=== PATIENT | female | born 1945 | race Caucasian/White ===

== ENCOUNTER 2022-02-17 10:33 | Inpatient (IN) | payer OTHER, MEDICARE, SELFPAY ==
[2022-02-17] VITALS (12 sets, daily range): BP systolic 96–139; BP diastolic 45–84; PULSE 88–142; RESP 14–28; TEMP 36.3–36.7; O2SAT 93–99; BMI 19.0; BMI 18.8
--- NOTE | 2022-02-17 11:07 | EDS_ITS ---
HPI History of Present Illness Chief Complaint: Weakness Informant: patient Onset/Context/Timing Onset: Days (2) Context: Gradual Onset Timing: Continuous Quality: Weakness Location: Generalized Worsened by: Exertion Relieved by: Rest Narrative Narrative: Patient presents with generalized weakness that has been getting worse over the past 2 days. Patient states she feels weak anytime she exerts herself. Patient states it is better with rest. Patient states it is gradually gotten worse. Patient admits to some diarrhea and melena over the last couple days. Patient denies any abdominal pain. Patient states that on the way to the emergency department was she was in the back of the ambulance, she developed some heaviness in her chest. Patient states this has resolved. Patient admits to some urinary frequency but denies any dysuria or hematuria. Patient denies any shortness of breath or cough. Patient denies any fevers, chills, or sweats. [facility] Medical History Heart attack Hypertension Pulmonary embolism Spinal injuries Spinal stenosis Urinary tract infection Home Medications Claritin 10 mg PO/SL DAILY 02/17/22 [History Last Taken Unknown] Xarelto 10 mg PO/SL DAILY 02/17/22 [History Last Taken Unknown] aspirin 81 mg PO/SL DAILY 02/17/22 [History Last Taken Unknown] atorvastatin 40 mg PO/SL DAILY 02/17/22 [History Last Taken Unknown] calcium carbonate 1,000 mg PO/SL DAILY 02/17/22 [History Last Taken Unknown] hydrochlorothiazide 12.5 mg PO/SL DAILY 02/17/22 [History Last Taken Unknown] lisinopril 20 mg PO/SL DAILY 02/17/22 [History Last Taken Unknown] metoprolol tartrate 50 mg PO/SL BID 02/17/22 [History Last Taken Unknown] multivitamin 1 tablet PO/SL DAILY 02/17/22 [History Last Taken Unknown] vitamin B complex 1 caplet PO/SL DAILY 02/17/22 [History Last Taken Unknown] vitamin E 1,000 units PO/SL DAILY 02/17/22 [History Last Taken Unknown] Allergy/AdvReac Type Severity Reaction Status Date / Time iodine Allergy Rash Verified 02/17/22 10:47 morphine Allergy Other Verified 02/17/22 10:47 codeine AdvReac Vomiting Verified 02/17/22 10:47 Surgical History History of appendectomy History of hysterectomy History of tonsillectomy Social History Smoking Status: Former smoker ROS ROS ED Constitutional Constitutional ED: Denies chills or fever(s) Eyes Eyes: Denies blurry vision or change in vision ENT ENT ED: Denies rhinorrhea or sore throat Cardiovascular Cardiovascular: Reports chest pain; Denies palpitations Respiratory/Chest Respiratory/Chest: Denies cough or dyspnea Gastrointestinal Gastrointestinal: Reports diarrhea and melena; Denies nausea or vomiting Genitourinary Genitourinary ED: Denies dysuria or hematuria Musculoskeletal Musculoskeletal: Reports back pain; Denies neck pain Integumentary Denies abscess or rash Neurologic Neurologic: Reports weakness; Denies headache(s) Allergic/Immunologic Allergic/Immunologic ED: Denies mouth swelling or urticaria EXAM Physical Exam Const Vital Signs: 02/17/22 10:38 02/17/22 10:54 02/17/22 11:00 Temperature 97.7 F L Temperature Source Temporal Pulse Rate 128 H 124 H Pulse Rate [Lying] Pulse Rate [Sitting (for 1 minute prior to obtaining)] Pulse Rate [Standing (for 1 minute prior to obtaining)] Respiratory Rate 14 23 H Respiratory Effort Normal Respiratory Pattern Normal Blood Pressure 117/67 112/66 Blood Pressure [Lying] Blood Pressure [Sitting (for 1 minute prior to obtaining)] Blood Pressure [Standing (for 1 minute prior to obtaining)] Blood Pressure Mean 83 81 Blood Pressure Mean [Lying] Blood Pressure Mean [Sitting (for 1 minute prior to obtaining)] Blood Pressure Mean [Standing (for 1 minute prior to obtaining)] 02/17/22 12:00 02/17/22 12:53 Temperature Temperature Source Pulse Rate 111 H Pulse Rate [Lying] 137 H Pulse Rate [Sitting (for 1 minute prior to obtaining)] 142 H Pulse Rate [Standing (for 1 minute prior to obtaining)] 141 H Respiratory Rate 18 Respiratory Effort Respiratory Pattern Blood Pressure 123/69 H Blood Pressure [Lying] 108/64 Blood Pressure [Sitting (for 1 minute prior to obtaining)] 115/78 Blood Pressure [Standing (for 1 minute prior to obtaining)] 96/45 L Blood Pressure Mean 87 Blood Pressure Mean [Lying] 78 Blood Pressure Mean [Sitting (for 1 minute prior to obtaining)] 90 Blood Pressure Mean [Standing (for 1 minute prior to obtaining)] 62 Positive well nourished and well developed General Appearance ED: well developed and NAD HEENT Reports moist mucous membranes Eyes PERRL and EOMs intact bilaterally Neck supple and no JVD Chest Wall inspection of chest normal and palpation of chest normal Resp normal respiratory effort and clear to auscultation bilaterally Cardio regular rhythm Rate: tachycardic GI normal to inspection, nondistended, normoactive bowel sounds and non-tender Palpation: soft Extremity normal to inspection General Extremety ED: Negative for edema or tenderness General Extremity: Negative for edema Neuro oriented x3, CN's II-XII intact bilaterally and no sensory deficits noted Sensorium / Orientation: alert Motor Exam: strength 5/5 throughout Psych mental status grossly normal MDM MDM MDM Narrative Medical decision making narrative: Patient was given IV fluids. Patient was given aspirin. EKG showed sinus tachycardia with a rate of 129. There is a left anterior fascicular block noted. TX interval was normal. QRS interval was normal. QTc interval was within normal limits. There is left axis deviation at -62. There are nonspecific ST-T wave changes noted. There are no prior EKGs available for comparison. CBC shows a mild leukocytosis of 15.6. Hemoglobin was 11.6 and hematocrit was 34.5. Comprehensive metabolic profile shows a BUN of 15 and creatinine 1.27. High-sensitivity troponin was elevated to 70. Stool Hemoccult was positive. Orthostatic vital signs were positive. Patient was given repeat bolus of normal saline. Case was discussed with Dr. Allen from gastroenterology. He is agreeable to see the patient in the hospital. Case was discussed with the hospitalist. He will admit the patient to PCU. Patient and family understood and were agreeable with the plan. All questions were answered. Lab Data Attestation: I reviewed the patient's lab results. Labs: Laboratory Results - last 24 hr 02/17/22 02/17/22 11:00 11:00 WBC 15.6 H RBC 3.33 L Hgb 11.6 L Hct 34.5 L MCV 103.6 H MCH 34.8 H MCHC 33.6 RDW Std Deviation 50.7 H RDW Coeff of Annemarie 13.3 Plt Count 289 MPV 10.3 Immature Gran % (Auto) 0.500 Neut % (Auto) 78.8 H Lymph % (Auto) 13.2 L Dawson % (Auto) 7.0 Eos % (Auto) 0.2 Baso % (Auto) 0.3 Absolute Neuts (auto) 12.3 H Absolute Lymphs (auto) 2.06 Nucleated RBC % 0 Sodium 142 Potassium 3.8 Chloride 107 Carbon Dioxide 25.0 Anion Gap 10 BUN 50 H Creatinine 1.27 H Estim Creat Clear Calc 33.66 Est GFR (MDRD) Af Amer 52 L Est GFR (MDRD) Non-Af 43 L BUN/Creatinine Ratio 39.4 H Glucose 118 H Calcium 9.3 Total Bilirubin 0.30 AST 16 ALT 20 Alkaline Phosphatase 53 Troponin I High Sens 270 H* Total Protein 7.2 Albumin 3.6 Globulin 3.6 Albumin/Globulin Ratio 1.0 EKG Initial EKG: Interpretation: Sinus Tachycardia (129), LAFB and Non-Specific ST Changes Prior EKG tracings: not available for review Discharge Plan Dx/Rx/DC Orders Clinical Impression: Gastrointestinal bleeding, upper, Elevated troponin Disposition Disposition: Acute Care Hospital [facility]
--- NOTE | 2022-02-17 11:11 | EKG12_ITS ---
Test Reason : CP Blood Pressure : / mmHG Vent. Rate : 129 BPM Atrial Rate : 129 BPM P-R Int : 146 ms QRS Dur : 078 ms QT Int : 312 ms P-R-T Axes : 074 -62 049 degrees QTc Int : 457 ms Sinus tachycardia Left anterior fascicular block Nonspecific ST abnormality Abnormal ECG Confirmed by NANCY GRIFFIN, CHIP ([id number]), editorial cartoonist KWASI VIEYRA ([id number]) on 02/18/2022 10:24:58 AM Referred By: KMA/JACKELIN Confirmed By:CHIP CRUZ MD
[2022-02-17] MEDS: 0.9% Normal Saline 1,000 ML 1000 ML IV ×2 (11:17→14:24)
[2022-02-17 11:50] LABS: Absolute Lymphocyte Count 2.06 X10^3/uL (0.83-4.51); Absolute Neutrophil Count 12.3 X10^3/uL (2.0-7.7); Basophil# 0.05 X10^3/uL; Basophil% 0.3 % (0-1); Eosinophil# 0.03 X10^3/uL; Eosinophils% 0.2 % (0-5); Hematocrit 34.5 % (37-47); Hemoglobin 11.6 g/dL (12.0-15.0); Lymphocyte # 2.06 X10^3/ul (0.83-4.51); Lymphocyte % 13.2 % (19-41); Mean Corp Hgb Conc 33.6 g/dL (32-36); Mean Corpuscular Hgb 34.8 pg (27.0-32.0); Mean Corpuscular Volume 103.6 fL (81-99); Mean Platelet Vol. 10.3 fl (6.2-12.0); Monocyte# 1.09 X10^3/uL; NRBC Flagged by Analyzer 0 % (0-5); Neutrophil # 12.27 X10^3/uL (2.7-7.7); Neutrophil % 78.8 % (47-70); Platelet Count 289 K/mm3 (150-450); RBC Distribution Width CV 13.3 % (11.6-14.6); RBC Distribution Width SD 50.7 fl (35.1-43.9); Red Blood Count 3.33 M/mm3 (4.2-5.4); White Blood Count 15.6 K/mm3 (4.4-11.0)
[2022-02-17 11:52] LABS: AST(SGOT) 16 U/L (15-37); Alanine Aminotransfer ALT/SGPT 20 U/L (13-56); Albumin, Serum 3.6 g/dL (3.2-5.0); Alkaline Phosphatase 53 U/L (45-117); Anion Gap 10 (5-15); BUN 50 mg/dL (7-18); BUN/Creat Ratio 39.4 RATIO (10-20); Calcium,Total 9.3 mg/dL (8.5-10.1); Chloride 107 mmol/L (98-107); Creatinine, Serum 1.27 mg/dL (0.55-1.02); EST Glomerular Filtration Rate 43 mL/min (>60); Est Glom Filt Rate - Afr Amer 52 mL/min (>60); Estimated Creatinine Clearance 33.66 ml/min; Globulin 3.6 g/dL (2.2-4.2); Glucose 118 mg/dL (74-106); Potassium 3.8 mmol/L (3.5-5.1); Protein, Total 7.2 g/dL (6.4-8.2); Sodium Level 142 mmol/L (136-145); Troponin-I HS 270 pg/mL (3.0-54.0)
--- NOTE | 2022-02-17 14:07 | RAD_ITS ---
STUDY: X-RAY CHEST REASON FOR EXAM: Female, 76 years old. Chest pain TECHNIQUE: Single AP portable view of the chest. COMPARISON: None. FINDINGS: EKG electrodes are seen. There is hyperinflation of the lungs consistent with chronic obstructive lung disease (COPD). There is no demonstrated pleural abnormality. Normal size heart. Normal mediastinum and ministerio. Normal visualized pulmonary arteries. There is atherosclerotic calcification of the aortic arch with tortuosity. There is a dextroscoliosis of the thoracic spine. Normal visualized ribs, clavicles, and shoulders. There is no demonstrated abnormality of the visualized soft tissue structures of the upper abdomen. RAD/Chest 1 View (Portable) IMPRESSION: Hyperinflation with increased bilateral bronchovascular markings suggestive of COPD. Electronically Signed: Medardo Walton MD at 15:08 EDT ,
[2022-02-17] MEDS: Aspirin 81 MG TAB.CHEW 324 MG PO (14:25)
--- NOTE | 2022-02-17 14:40 | PCM.HP.STD ---
Documented by User: Sarah Mark NP, SENIOR POWER SCHEDULER-C 02/17/22 15:08 HPI - General HPI Narrative MILLER ACUNA, is a 76 F who presents to the emergency room due to weakness and diarrhea. Patient states for the past 2 days she has felt generally weak and spends much of her day sleeping. She reports this morning she began to have recurrent episodes of diarrhea which were black in color. She also reports chest pressure and dyspnea on exertion. She denies chest pain or pressure at rest. She denies history of GI bleed. Denies nausea, vomiting. Denies fever, chills. Patient reports she has had some chest pressure recently and suspected it was due to anxiety however her symptoms have become worse. She reports a past medical history of CAD with history of stents, hypertension, hyperlipidemia, history of PE. [facility] Medical History Heart attack Hypertension Pulmonary embolism Spinal injuries Spinal stenosis Urinary tract infection Home Medications aspirin [Aspirin Low Dose] 81 mg PO DAILY 02/17/22 [History Last Taken 02/16/22] atorvastatin 40 mg PO DAILY 02/17/22 [History Last Taken 02/16/22] calcium carbonate 1,000 mg PO DAILY 02/17/22 [History Last Taken 02/16/22] hydrochlorothiazide 12.5 mg PO DAILY 02/17/22 [History Last Taken 02/16/22] lisinopril 20 mg PO DAILY 02/17/22 [History Last Taken 02/16/22] loratadine [Claritin] 10 mg PO DAILY 02/17/22 [History Last Taken 02/16/22] metoprolol tartrate 50 mg PO BID 02/17/22 [History Last Taken 02/16/22] multivitamin,[id number]-dddl-Vw-FA-min [Therapeutic Multivit/Mineral] 1 tab PO DAILY 02/17/22 [History Last Taken 02/16/22] rivaroxaban [Xarelto] 10 mg PO DAILY 02/17/22 [History Last Taken 02/16/22] vitamin B complex 1 cap PO DAILY 02/17/22 [History Last Taken 02/16/22] vitamin E 1,000 unit PO DAILY 02/17/22 [History Last Taken 02/16/22] Allergy/AdvReac Type Severity Reaction Status Date / Time iodine Allergy Rash Verified 02/17/22 10:47 morphine Allergy Other Verified 02/17/22 10:47 codeine AdvReac Vomiting Verified 02/17/22 10:47 Family History other other (States she has a dysfunctional family and does not know maternal or paternal medical history.) Surgical History H/O heart artery stent History of appendectomy History of hysterectomy History of tonsillectomy Previous back surgery Social History (Updated 02/17/22 @ 14:47 by Sarah Mark SENIOR POWER SCHEDULER, SENIOR POWER SCHEDULER-C) household members: spouse Smoking Status: Former smoker alcohol intake: never substance use type: does not use ROS Constitutional Constitutional: Reports fatigue and weakness; Denies change in weight, chills or fever(s) Cardiovascular Cardiovascular: Reports chest pain; Denies edema, lightheadedness, palpitations or syncope Respiratory/Chest Respiratory/Chest: Reports shortness of breath with exertion; Denies cough, productive cough or wheezing Gastrointestinal Gastrointestinal: Reports diarrhea; Denies abdominal pain, constipation, nausea or vomiting Genitourinary Genitourinary: Denies burning urination, difficulty urinating, dysuria, hematuria, urinary frequency, urinary incontinence or urinary urgency Musculoskeletal Musculoskeletal: Denies back pain, joint pain or muscle weakness Integumentary Integumentary: Denies erythema, lesions, rash or wounds Neurologic Neurologic: Denies abnormal speech, confusion, dizziness, focal weakness, numbness, paresthesias, seizure-like activity or syncope Psychiatric Psychiatric: Denies anxiety or depression Hematologic/Lymphatic Hematologic/Lymphatic: Denies anemia, easy bleeding or easy bruising Allergic/Immunologic Allergic/Immunologic: Denies hives or asthma Vital Signs Vital Signs Vital Signs: 02/17/22 10:38 02/17/22 10:54 02/17/22 11:00 Temperature 97.7 F L Temperature Source Temporal Pulse Rate 128 H 124 H Pulse Rate [Lying] Pulse Rate [Sitting (for 1 minute prior to obtaining)] Pulse Rate [Standing (for 1 minute prior to obtaining)] Respiratory Rate 14 23 H Respiratory Effort Normal Respiratory Pattern Normal Blood Pressure 117/67 112/66 Blood Pressure [Lying] Blood Pressure [Sitting (for 1 minute prior to obtaining)] Blood Pressure [Standing (for 1 minute prior to obtaining)] Blood Pressure Mean 83 81 Blood Pressure Mean [Lying] Blood Pressure Mean [Sitting (for 1 minute prior to obtaining)] Blood Pressure Mean [Standing (for 1 minute prior to obtaining)] 02/17/22 12:00 02/17/22 12:53 02/17/22 14:00 Temperature Temperature Source Pulse Rate 111 H 124 H Pulse Rate [Lying] 137 H Pulse Rate [Sitting (for 1 minute prior to obtaining)] 142 H Pulse Rate [Standing (for 1 minute prior to obtaining)] 141 H Respiratory Rate 18 28 H Respiratory Effort Respiratory Pattern Blood Pressure 123/69 H 105/67 Blood Pressure [Lying] 108/64 Blood Pressure [Sitting (for 1 minute prior to obtaining)] 115/78 Blood Pressure [Standing (for 1 minute prior to obtaining)] 96/45 L Blood Pressure Mean 87 79 Blood Pressure Mean [Lying] 78 Blood Pressure Mean [Sitting (for 1 minute prior to obtaining)] 90 Blood Pressure Mean [Standing (for 1 minute prior to obtaining)] 62 02/17/22 14:27 Temperature 97.3 F L Temperature Source Temporal Pulse Rate 117 H Pulse Rate [Lying] Pulse Rate [Sitting (for 1 minute prior to obtaining)] Pulse Rate [Standing (for 1 minute prior to obtaining)] Respiratory Rate 28 H Respiratory Effort Respiratory Pattern Blood Pressure 105/67 Blood Pressure [Lying] Blood Pressure [Sitting (for 1 minute prior to obtaining)] Blood Pressure [Standing (for 1 minute prior to obtaining)] Blood Pressure Mean 79 Blood Pressure Mean [Lying] Blood Pressure Mean [Sitting (for 1 minute prior to obtaining)] Blood Pressure Mean [Standing (for 1 minute prior to obtaining)] Weight Weight: 128 lb 11.999 oz Body Mass Index (BMI) 19.0 Physical Exam Const alert, oriented x3 and no apparent distress Orientation / Consciousness: awake, oriented to person, oriented to place and oriented to time HEENT normocephalic and moist oral mucous membranes Eyes PERRL, EOMs intact bilaterally and conjunctivae normal Neck no lymphadenopathy Resp normal respiratory effort and clear to auscultation bilaterally Cardio regular rate, regular rhythm and no murmurs Peripheral Pulses: pulses 2+ throughout GI normal to inspection, nondistended, normoactive bowel sounds, non-tender and non-distended Extremity normal to inspection Skin no rashes or lesions noted Lesions: no lesions Rashes: no rashes Trauma: no lacerations or abrasions Neuro CN's II-XII intact bilaterally, no focal motor deficits, no sensory deficits noted and deep tendon reflexes 2+ bilaterally Psych mental status grossly normal and affect normal Results Lab / Micro Data Result Diagrams: 02/17/22 11:00 02/17/22 11:00 Labs: Laboratory Results - last 24 hr 02/17/22 11:00: WBC 15.6 H, RBC 3.33 L, Hgb 11.6 L, Hct 34.5 L, MCV 103.6 H, MCH 34.8 H, MCHC 33.6, RDW Std Deviation 50.7 H, RDW Coeff of Annemarie 13.3, Plt Count 289, MPV 10.3, Immature Gran % (Auto) 0.500, Neut % (Auto) 78.8 H, Lymph % (Auto) 13.2 L, Bleckley % (Auto) 7.0, Eos % (Auto) 0.2, Baso % (Auto) 0.3, Absolute Neuts (auto) 12.3 H, Absolute Lymphs (auto) 2.06, Nucleated RBC % 0 02/17/22 11:00: Sodium 142, Potassium 3.8, Chloride 107, Carbon Dioxide 25.0, Anion Gap 10, BUN 50 H, Creatinine 1.27 H, Estim Creat Clear Calc 33.66, Est GFR (MDRD) Af Amer 52 L, Est GFR (MDRD) Non-Af 43 L, BUN/Creatinine Ratio 39.4 H, Glucose 118 H, Calcium 9.3, Total Bilirubin 0.30, AST 16, ALT 20, Alkaline Phosphatase 53, Troponin I High Sens 270 H*, Total Protein 7.2, Albumin 3.6, Globulin 3.6, Albumin/Globulin Ratio 1.0 Micro: Microbiology 02/17/22 Unknown Stool Stool Occult Blood (STEFANO) - Final Occult Blood Positive Assessment & Plan Assessment/Plan (1) Elevated troponin: (2) Gastrointestinal bleeding, upper: PLAN: 1. GI bleed- stool + OB. IV PPI. GI consult. Trend H/H. 2. Elevated troponin- trend enzymes. EKG with nonspecific ST changes. Trend enzymes. Obtain echo. If enzymes trend upward, will obtain cardiology consult. Continue statin, metoprolol. Patient received aspirin 324 mg x 1 in ED. 3. Elevated creatinine-unknown baseline. IV fluids, trend BMP. 4. CAD with history of stents-on aspirin, statin, metoprolol. 5. Hypertension-continue lisinopril, HCTZ, metoprolol. 6. Hyperlipidemia- continue statin. 7. History of PE- on xarelto. DVT prophylaxis-SCDs, hold xarelto This patient was seen by FREDA Stephens under the supervision of Dr. Mcghee. Time spent examining patient, reviewing data and subsequent management of care: 18 Minutes Documented by User: Dr. Rodlofo Mcghee MD 02/17/22 19:46 HPI - General General Date of Admission: 02/17/22 [facility] Medical History Heart attack Hypertension Pulmonary embolism Spinal injuries Spinal stenosis Urinary tract infection Home Medications aspirin [Aspirin Low Dose] 81 mg PO DAILY 02/17/22 [History Last Taken 02/16/22] atorvastatin 40 mg PO DAILY 02/17/22 [History Last Taken 02/16/22] calcium carbonate 1,000 mg PO DAILY 02/17/22 [History Last Taken 02/16/22] hydrochlorothiazide 12.5 mg PO DAILY 02/17/22 [History Last Taken 02/16/22] lisinopril 20 mg PO DAILY 02/17/22 [History Last Taken 02/16/22] loratadine [Claritin] 10 mg PO DAILY 02/17/22 [History Last Taken 02/16/22] metoprolol tartrate 50 mg PO BID 02/17/22 [History Last Taken 02/16/22] multivitamin,[id number]-yroy-Xa-FA-min [Therapeutic Multivit/Mineral] 1 tab PO DAILY 02/17/22 [History Last Taken 02/16/22] rivaroxaban [Xarelto] 10 mg PO DAILY 02/17/22 [History Last Taken 02/16/22] vitamin B complex 1 cap PO DAILY 02/17/22 [History Last Taken 02/16/22] vitamin E 1,000 unit PO DAILY 02/17/22 [History Last Taken 02/16/22] Allergy/AdvReac Type Severity Reaction Status Date / Time iodine Allergy Rash Verified 02/17/22 10:47 morphine Allergy Other Verified 02/17/22 10:47 codeine AdvReac Vomiting Verified 02/17/22 10:47 Family History other Surgical History H/O heart artery stent History of appendectomy History of hysterectomy History of tonsillectomy Previous back surgery Social History (Updated 02/17/22 @ 14:47 by Sarah Mark SENIOR POWER SCHEDULER, SENIOR POWER SCHEDULER-C) household members: spouse Smoking Status: Former smoker alcohol intake: never substance use type: does not use Results Lab / Micro Data Result Diagrams: 02/17/22 11:00 02/17/22 11:00 Charges/Coding Addendum Addendum: Dr. Mcghee: I personally reviewed the chart and examined the patient, and agree with the above findings. 76-year-old female with a previous history of coronary artery disease and stents about 10 years ago presented to the hospital with some shortness of breath and chest pressure as well as diarrhea and dark melanotic stools. She says the diarrhea and the melanotic stools started within the last 24 to 48 hours. The stools were tested in the ER and were found positive for blood. Hemoglobin is stable at 11.6, her creatinine is slightly elevated but we do not know what her baseline is. We will continue with IV fluids and will hold her home Xarelto and aspirin. Initial troponin was slightly elevated to 270 and then repeat went down to 229. I am not concerned of acute coronary syndrome at this time especially given her GI bleed. We will continue with PPI as well as consulting gastroenterology for evaluation and a possible scope. If she develops worse chest pressure or has any ischemic changes on her EKG then at that time will consult cardiology however my hope is that with the resolution of her GI bleed and her diarrhea, if she feels better she can follow-up with her retail bakery manager in the [facility] as an outpatient. Of note with her symptoms of fatigue over the last several weeks as well as some weakness, her UA showed positive nitrites and 500 leukocyte esterase as well as 3+ urine bacteria we will obtain a urine culture and if positive can start treatment. Clinical time spent in all aspects of patient care: 55 minutes Visit Charges Inpatient E&M: 83896 Init Hosp L3
[2022-02-17 14:45] LABS: International Normalized Ratio 1.1; Partial Thromboplast Time 26.5 Seconds (24.1-36.2); Prothrombin Time (Protime)PT. 13.8 SECONDS (11.7-14.9)
[2022-02-17 15:06] LABS: Troponin-I HS 229 pg/mL (3.0-54.0)
[2022-02-17 16:04] LABS: Mucous, Urine 0 SEEN /hpf (<or=2+)
--- NOTE | 2022-02-17 16:05 | ECHOD_ITS ---
Reason For Study: ELEVATED TROPONINS Procedure This was a 2D Doppler, Color Flow transthoracic echocardiogram. The study was technically difficult. Due to deformed chest structures. Exam performed portable in patient room. Left Ventricle The estimated ejection fraction is 65 %. Unable to assess diastolic dysfunction. No regional wall motion abnormalities noted. Right Ventricle Normal RV size. Normal systolic function. Atria Normal left atrium. Normal right atrium. No doppler evidence for ASD. Mitral Valve There is moderate mitral annular calcification. There is no mitral valve stenosis. No mitral valve insufficiency. Tricuspid Valve There is no tricuspid stenosis. Trivial tricuspid valve insufficiency. Pulmonary artery systolic pressure is 40 mmHg. Aortic Valve Trisinus/trileaflet aortic valve. There is no aortic stenosis. No aortic valve insufficiency. Pulmonic Valve There is no pulmonic valvular stenosis. No pulmonic valve insufficiency. Great Vessels Normal aortic root. Pericardium/Pleural No pericardial effusion. MMode/2D Measurements & Calculations LVIDd: 4.0 cm IVSd: 0.77 cm Ao root diam: 2.9 cm LVIDs: 3.0 cm LVPWd: 0.75 cm RVDd: 3.1 cm FS: 25.2 % LAV(MOD-bp): 41.9 ml LA A4 area: 14.9 cm2 LA dimension(2D): 4.6 cm LAV(MOD-bp) Indexed: 24.6 ml/m2 LAV(MOD-sp2): 41.4 ml LAV(MOD-sp4): 40.5 ml RA A4 area: 13.5 cm2 Time Measurements MV dec time: 0.14 sec Doppler Measurements & Calculations MV E max diallo: 86.8 cm/sec Lat Peak E' Diallo: 11.1 cm/sec Med Peak E' Diallo: 7.1 cm/sec MV A max diallo: 125.4 cm/sec E/E' lat: 7.8 E/E' med: 12.2 MV E/A: 0.69 Ao V2 max: 150.8 cm/sec LV V1 max: 105.6 cm/sec PA V2 max: 78.4 cm/sec Ao max P.1 mmHg LV V1 max P.5 mmHg TR max diallo: 278.7 cm/sec TR max P.3 mmHg ECHO/Echo Complete Interpretation Summary The estimated ejection fraction is 65 %. No significant valvular abnormalities Ordering Physician: Sarah Mark Referring Physician: Cr Mitchell Performed By: Peggy Ye RDCS, RVT
[2022-02-17 16:06] LABS: Color, Urine Yellow (Yellow); Glucose, Dipstick Normal (Normal); Ketone-Dipstick Negative (Negative); Leukocyte Esterase-Dipstick 500 /ul (Negative); Nitrite-Dipstick Positive (Negative); Occult Blood-Urine 150 /ul (Negative); Protein-Dipstick 30 mg/dl (Negative); Specific Gravity, Urine 1.015 (1.002-1.030); Urine Bilirubin Dipstick Negative (Negative); Urine Clarity Sl. Cloudy (Clear); Urine Urobilinogen Normal (Normal)
[2022-02-17 16:15] LABS: Bacteria 3+ /hpf (None Seen); Red Blood Cells-Urine 0-5 SEEN /hpf (0-5); Squamous Epithelial Cells - UA 0-5 SEEN /hpf (5-10); White Blood Cells 25-50 SEEN /hpf (0-5)
[2022-02-17] MEDS: 0.9% Normal Saline 1,000 ML 75 ML IV (16:24)
[2022-02-17] MEDS: 0.9% Saline Lock 10 ML Syringe IV (16:25)
[2022-02-17] MEDS: Metoprolol Tartrate 50 MG Tablet PO ×2 (16:33→22:57)
--- NOTE | 2022-02-17 18:03 | EX.PCM.CON.G ---
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 She has been having progressive weakness and diarrhea. She describes as blacking tarry. Her hemoglobin was 11.6 in the emergency room. We do not have a baseline hemoglobin on her. Her BUN/creatinine ratio is also elevated at 50-1.7. Her troponin was elevated at 270 and has gone down to 226. Her EKG did not show any signs of acute ischemia. In the ED. she was also discovered to have an increased white blood cell count. She denies any cough. She denies any chest pain or shortness of breath. She does complain of weakness and fatigue with lethargy. [facility] Medical History Heart attack Hypertension Pulmonary embolism Spinal injuries Spinal stenosis Urinary tract infection Home Medications aspirin [Aspirin Low Dose] 81 mg PO DAILY 02/17/22 [History Last Taken 02/16/22] atorvastatin 40 mg PO DAILY 02/17/22 [History Last Taken 02/16/22] calcium carbonate 1,000 mg PO DAILY 02/17/22 [History Last Taken 02/16/22] hydrochlorothiazide 12.5 mg PO DAILY 02/17/22 [History Last Taken 02/16/22] lisinopril 20 mg PO DAILY 02/17/22 [History Last Taken 02/16/22] loratadine [Claritin] 10 mg PO DAILY 02/17/22 [History Last Taken 02/16/22] metoprolol tartrate 50 mg PO BID 02/17/22 [History Last Taken 02/16/22] multivitamin,go-jqis-Dx-FA-min [Therapeutic Multivit/Mineral] 1 tab PO DAILY 02/17/22 [History Last Taken 02/16/22] rivaroxaban [Xarelto] 10 mg PO DAILY 02/17/22 [History Last Taken 02/16/22] vitamin B complex 1 cap PO DAILY 02/17/22 [History Last Taken 02/16/22] vitamin E 1,000 unit PO DAILY 02/17/22 [History Last Taken 02/16/22] Allergy/AdvReac Type Severity Reaction Status Date / Time iodine Allergy Rash Verified 02/17/22 10:47 morphine Allergy Other Verified 02/17/22 10:47 codeine AdvReac Vomiting Verified 02/17/22 10:47 Family History other Surgical History H/O heart artery stent History of appendectomy History of hysterectomy History of tonsillectomy Previous back surgery Social History (Updated 02/17/22 @ 14:47 by Sarah Mark 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 EQUIPMENT REPAIRER, 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 EQUIPMENT REPAIRER-C) household members: spouse Smoking Status: Former smoker alcohol intake: never substance use type: does not use ROS Gastrointestinal Gastrointestinal: Reports melena Physical Exam Const alert General Appearance: cooperative Orientation / Consciousness: oriented to person HEENT hearing grossly normal bilaterally Head and Scalp: normal to inspection Face and Sinus: face symmetric Nose: external nose normal Mouth: oral and palatal mucosa normal Eyes conjunctivae normal General Eye: normal appearance of both eyes Neck full ROM General: normal visual inspection Lymph Lymphatic: no lymphadenopathy noted Chest inspection of chest normal and palpation of chest normal Chest: symmetrical chest wall rise Resp normal respiratory effort Effort and Inspection: able to speak in complete sentences Cardio regular rate GI non-distended Percussion: normal to percussion Rectal Exam: deferred Neuro Speech: speech normal Gait (Neuro): normal gait Lab / Micro Data Result Diagrams: 02/17/22 11:00 02/17/22 11:00 Labs: Laboratory Results - last 24 hr 02/17/22 11:00: WBC 15.6 H, RBC 3.33 L, Hgb 11.6 L, Hct 34.5 L, MCV 103.6 H, MCH 34.8 H, MCHC 33.6, RDW Std Deviation 50.7 H, RDW Coeff of Annemarie 13.3, Plt Count 289, MPV 10.3, Immature Gran % (Auto) 0.500, Neut % (Auto) 78.8 H, Lymph % (Auto) 13.2 L, [place] % (Auto) 7.0, Eos % (Auto) 0.2, Baso % (Auto) 0.3, Absolute Neuts (auto) 12.3 H, Absolute Lymphs (auto) 2.06, Nucleated RBC % 0 02/17/22 11:00: Sodium 142, Potassium 3.8, Chloride 107, Carbon Dioxide 25.0, Anion Gap 10, BUN 50 H, Creatinine 1.27 H, Estim Creat Clear Calc 33.66, Est GFR (MDRD) Af Amer 52 L, Est GFR (MDRD) Non-Af 43 L, BUN/Creatinine Ratio 39.4 H, Glucose 118 H, Calcium 9.3, Total Bilirubin 0.30, AST 16, ALT 20, Alkaline Phosphatase 53, Troponin I High Sens 270 H*, Total Protein 7.2, Albumin 3.6, Globulin 3.6, Albumin/Globulin Ratio 1.0 02/17/22 14:20: PT 13.8, INR 1.1, APTT 26.5 02/17/22 14:25: Troponin I High Sens 229 H* 02/17/22 15:55: Urine Color Yellow, Urine Clarity Sl. Cloudy, Urine pH 6.0, Ur Specific [place] 1.015, Urine Protein 30 H, Urine Glucose (UA) Normal, Urine Ketones Negative, Urine Occult Blood 150 H, Urine Nitrite Positive H, Urine Bilirubin Negative, Urine Urobilinogen Normal, Ur Leukocyte Esterase 500 H, Urine RBC 0-5 SEEN, Urine WBC 25-50 SEEN, Ur Squamous Epith Cells 0-5 SEEN, Urine Bacteria 3+, Urine Mucus 0 SEEN Micro: Microbiology 02/17/22 Unknown Stool Stool Occult Blood (STEFANO) - Final Occult Blood Positive Radiology Impression Chest X-Ray 02/17/22 14:07 IMPRESSION: Hyperinflation with increased bilateral bronchovascular markings suggestive of COPD. Electronically Signed: Medardo Walton MD at 15:08 EDT Reading Location ID and State: [id number] / [place] , Service support , Assessment & Plan Assessment/Plan (1) Gastrointestinal bleeding, upper: PLAN: Differential diagnosis for melena does include anticoagulation induced upper GI bleeding secondary to AVM, peptic ulcer disease from aspirin and vitamin E. She should undergo an upper endoscopy to evaluate her GI tract. I recommend to continue PPI therapy colitis and her kidney function. If it worsens we will have to switch her to IV twice daily. Charges/Coding Visit Charges Inpatient E&M: 59106 Init Hosp L2
[2022-02-17] MEDS: Atorvastatin Calcium 40 MG Tablet PO (22:57)
[2022-02-17] MEDS: Acetaminophen 325 MG Tablet 650 MG PO (23:47)
[2022-02-18] VITALS (16 sets, daily range): BP systolic 104–145; BP diastolic 47–95; PULSE 70–86; RESP 12–18; TEMP 36.7–37.1; O2SAT 96–100; BMI 17.9
[2022-02-18] MEDS: 0.9% Normal Saline 1,000 ML 75 ML IV ×2 (03:52→21:27)
[2022-02-18 05:45] LABS: Absolute Lymphocyte Count 2.46 X10^3/uL (0.83-4.51); Absolute Neutrophil Count 5.8 X10^3/uL (2.0-7.7); Basophil# 0.06 X10^3/uL; Basophil% 0.7 % (0-1); Eosinophil# 0.14 X10^3/uL; Eosinophils% 1.5 % (0-5); Hematocrit 25.1 % (37-47); Hemoglobin 8.5 g/dL (12.0-15.0); Lymphocyte # 2.46 X10^3/ul (0.83-4.51); Lymphocyte % 26.7 % (19-41); Mean Corp Hgb Conc 33.9 g/dL (32-36); Mean Corpuscular Hgb 34.6 pg (27.0-32.0); Mean Platelet Vol. 10.1 fl (6.2-12.0); Monocyte# 0.75 X10^3/uL; Monocyte% 8.1 % (0-10); NRBC Flagged by Analyzer 0 % (0-5); Neutrophil # 5.79 X10^3/uL (2.7-7.7); Neutrophil % 62.7 % (47-70); Platelet Count 202 K/mm3 (150-450); RBC Distribution Width CV 13.4 % (11.6-14.6); RBC Distribution Width SD 50.3 fl (35.1-43.9); Red Blood Count 2.46 M/mm3 (4.2-5.4); White Blood Count 9.2 K/mm3 (4.4-11.0)
--- NOTE | 2022-02-18 05:55 | EKG12_ITS ---
Test Reason : AM EKG Blood Pressure : / mmHG Vent. Rate : 084 BPM Atrial Rate : 084 BPM P-R Int : 158 ms QRS Dur : 080 ms QT Int : 388 ms P-R-T Axes : 000 -39 008 degrees QTc Int : 458 ms Normal sinus rhythm Left axis deviation Abnormal ECG When compared with ECG of 17-FEB-2022 10:41, MANUAL COMPARISON REQUIRED, DATA IS UNCONFIRMED Confirmed by NANCY GRIFFIN, CHIP ([id number]), video news editor KWASI VIEYRA ([id number]) on 02/19/2022 1:47:06 PM Referred By: DR SILVA Confirmed By:CHIP CRUZ MD
[2022-02-18 06:06] LABS: International Normalized Ratio 1.1; Prothrombin Time (Protime)PT. 13.6 SECONDS (11.7-14.9)
[2022-02-18 06:07] LABS: Anion Gap 3 (5-15); BUN 40 mg/dL (7-18); BUN/Creat Ratio 39.6 RATIO (10-20); Calcium,Total 8.4 mg/dL (8.5-10.1); Chloride 114 mmol/L (98-107); Creatinine, Serum 1.01 mg/dL (0.55-1.02); EST Glomerular Filtration Rate 56 mL/min (>60); Est Glom Filt Rate - Afr Amer 68 mL/min (>60); Estimated Creatinine Clearance 42.03 ml/min; Glucose 87 mg/dL (74-106); Partial Thromboplast Time 29.4 Seconds (24.1-36.2); Potassium 4.1 mmol/L (3.5-5.1); Sodium Level 142 mmol/L (136-145)
--- NOTE | 2022-02-18 10:40 | PN.HOSP_ITS ---
Documented by User: Sarah Mark NP, EDUCATIONAL ASSISTANT TEACHER-C 02/18/22 10:51 Subjective Subjective Patient seen and examined. Denies further chest pressure or shortness of breath. Denies other symptoms or complaints. To undergo upper endoscopy this afternoon. Objective Data Objective Data Vital Signs: Vital Signs Temp Pulse Resp BP Pulse Ox 98.1 F 84 18 122/68 H 97 02/18/22 03:53 02/18/22 09:00 02/18/22 03:53 02/18/22 03:53 02/18/22 03:53 Oxygen Delivery Method Room Air Weight: 127 lb 13.89 oz Body Mass Index (BMI) 18.8 Intake & Output: Intake and Output for Last 24 Hours 02/16/22 02/17/22 02/18/22 23:59 23:59 23:59 Intake Total 3340 / 3340 860 / 860 Balance 3340 / 3340 860 / 860 Lab / Micro Data Result Diagrams: 02/18/22 04:06 02/18/22 04:06 Labs: Laboratory Results - last 24 hr 02/17/22 11:00: WBC 15.6 H, RBC 3.33 L, Hgb 11.6 L, Hct 34.5 L, MCV 103.6 H, MCH 34.8 H, MCHC 33.6, RDW Std Deviation 50.7 H, RDW Coeff of Annemarie 13.3, Plt Count 289, MPV 10.3, Immature Gran % (Auto) 0.500, Neut % (Auto) 78.8 H, Lymph % (Auto) 13.2 L, [place] % (Auto) 7.0, Eos % (Auto) 0.2, Baso % (Auto) 0.3, Absolute Neuts (auto) 12.3 H, Absolute Lymphs (auto) 2.06, Nucleated RBC % 0 02/17/22 11:00: Sodium 142, Potassium 3.8, Chloride 107, Carbon Dioxide 25.0, Anion Gap 10, BUN 50 H, Creatinine 1.27 H, Estim Creat Clear Calc 33.66, Est GFR (MDRD) Af Amer 52 L, Est GFR (MDRD) Non-Af 43 L, BUN/Creatinine Ratio 39.4 H, Glucose 118 H, Calcium 9.3, Total Bilirubin 0.30, AST 16, ALT 20, Alkaline Phosphatase 53, Troponin I High Sens 270 H*, Total Protein 7.2, Albumin 3.6, Globulin 3.6, Albumin/Globulin Ratio 1.0 02/17/22 14:20: PT 13.8, INR 1.1, APTT 26.5 02/17/22 14:25: Troponin I High Sens 229 H* 02/17/22 15:55: Urine Color Yellow, Urine Clarity Sl. Cloudy, Urine pH 6.0, Ur Specific [place] 1.015, Urine Protein 30 H, Urine Glucose (UA) Normal, Urine Ketones Negative, Urine Occult Blood 150 H, Urine Nitrite Positive H, Urine Bilirubin Negative, Urine Urobilinogen Normal, Ur Leukocyte Esterase 500 H, Urine RBC 0-5 SEEN, Urine WBC 25-50 SEEN, Ur Squamous Epith Cells 0-5 SEEN, Urine Bacteria 3+, Urine Mucus 0 SEEN 02/18/22 04:06: WBC 9.2, RBC 2.46 L, Hgb 8.5 L, Hct 25.1 L, MCV 102.0 H, MCH 34.6 H, MCHC 33.9, RDW Std Deviation 50.3 H, RDW Coeff of Annemarie 13.4, Plt Count 202, MPV 10.1, Immature Gran % (Auto) 0.300, Neut % (Auto) 62.7, Lymph % (Auto) 26.7, [place] % (Auto) 8.1, Eos % (Auto) 1.5, Baso % (Auto) 0.7, Absolute Neuts (auto) 5.8, Absolute Lymphs (auto) 2.46, Nucleated RBC % 0 02/18/22 04:06: Sodium 142, Potassium 4.1, Chloride 114 H, Carbon Dioxide 25.0, Anion Gap 3 L, BUN 40 H, Creatinine 1.01, Estim Creat Clear Calc 42.03, Est GFR (MDRD) Af Amer 68, Est GFR (MDRD) Non-Af 56 L, BUN/Creatinine Ratio 39.6 H, Glucose 87, Calcium 8.4 L 02/18/22 04:06: PT 13.6, INR 1.1, APTT 29.4 Micro: Microbiology 02/18/22 08:48 Nasal Secretion SARS-CoV-2 Antigen (Rapid) - Final 02/17/22 Unknown Stool Stool Occult Blood (STEFANO) - Final Occult Blood Positive Radiography Diagnostic Testing: Radiology Impression Chest X-Ray 02/17/22 14:07 IMPRESSION: Hyperinflation with increased bilateral bronchovascular markings suggestive of COPD. Electronically Signed: Medardo Walton MD at 15:08 EDT , Physical Exam Const alert, oriented x3 and no apparent distress Orientation / Consciousness: awake, oriented to person, oriented to place and oriented to time HEENT normocephalic and moist oral mucous membranes Eyes PERRL, EOMs intact bilaterally and conjunctivae normal Neck no lymphadenopathy Resp normal respiratory effort and clear to auscultation bilaterally Cardio regular rate, regular rhythm and no murmurs Peripheral Pulses: pulses 2+ throughout GI normal to inspection, nondistended, normoactive bowel sounds, non-tender and non-distended Extremity normal to inspection Skin no rashes or lesions noted Lesions: no lesions Rashes: no rashes Trauma: no lacerations or abrasions Neuro CN's II-XII intact bilaterally, no focal motor deficits, no sensory deficits noted and deep tendon reflexes 2+ bilaterally Psych mental status grossly normal and affect normal Assessment & Plan Assessment/Plan (1) Gastrointestinal bleeding, upper: PLAN: 1. GI bleed- stool + OB. IV PPI. GI consulted. Trend H/H. Plan for upper endoscopy. 2. Elevated troponin, demand ischemia secondary to #1-enzymes did not trend. EKG with nonspecific ST changes. Echocardiogram ordered. 3. Acute UTI- IV Rocephin pending culture. 4. CAD with history of stents-on aspirin, statin, metoprolol. 5. Hypertension-continue metoprolol. Lisinopril, HCTZ held. 6. Hyperlipidemia- continue statin. 7. History of PE- on xarelto. 8. Elevated creatinine-unknown baseline. Mild dehydration resolved. No evidence of CKD. DVT prophylaxis-SCDs, hold xarelto This patient was seen by FREDA Stephens under the supervision of Dr. Tidwell. Documented by User: Dr. Marlen Tidwell DO 02/18/22 16:25 Subjective Subjective This patient was seen in conjunction with Sarah Mark NP. The following is a representation my independent history and physical examination. Please see below for any addendum the above. Patient is denying any current chest pain however she did report some when she came in. She has a known cardiac history and follows with Dr. Cheung in [place]. She had some mild troponin elevation however there is concern that this may be related to acute GI bleed rather than any specific cardiac issue. She states she has not seen Dr. Cheung in about 2 years secondary to Covid and has not had any recent stress test with the most recent one being prior to her back surgery which was prior to Covid. She states she is currently feeling well other than being hungry. Objective Data Lab / Micro Data Result Diagrams: 02/18/22 04:06 02/18/22 04:06 Physical Exam Const alert, oriented x3 and no apparent distress Constitutional Narrative: Thin elderly white female sitting up in a chair at the bedside, patient has visitor at the bedside, appears comfortable nontoxic Exam Limitations: no limitations Nutritional Appearance: thin HEENT head/scalp atraumatic and moist oral mucous membranes HEENT Narrative: Dentition is fair, Mallampati is 2, no thrush Head and Scalp: normocephalic Resp normal respiratory effort, no retractions, no use of accessory muscles and clear to auscultation bilaterally Auscultation: Negative for crackles, rales, rhonchi or wheezes Cardio regular rate, regular rhythm, S1 normal heart sound, S2 normal heart sound, no murmurs, no rub, no gallops, no clicks and no JVD Cardio Narrative: Patient does have a markedly convex breastbone GI normal to inspection, nondistended, normoactive bowel sounds, soft to palpation, non-tender and non-distended Extremity no clubbing, cyanosis or edema Extremity Narrative: Decreased lean muscle mass Peripheral Pulses: Yes pulses 2+ throughout Skin Skin Narrative: Skin is thinning Neuro oriented x3, CN's II-XII intact bilaterally, moves all extremities and no focal motor deficits Sensorium / Orientation: awake and alert Psych affect normal Assessment & Plan Assessment/Plan (1) Gastrointestinal bleeding, upper: (2) Elevated troponin: (3) Chest pain: (4) Acute blood loss anemia: (5) Duodenal stenosis: (6) Gastric ulcer: (7) Leukocytosis: (8) Elevated serum creatinine: (9) Suspected UTI: PLAN: Assessment: Upper GI bleed Gastric ulcer Acute blood loss anemia Duodenal stenosis Reflux esophagitis Moderate Schatzki's ring Elevated troponin Suspected acute urinary tract infection CAD Hypertension Hyperlipidemia History of PE Elevated serum creatinine Plan: EGD revealed gastric ulcer that was oozing and patient is status post injecting and clipping -Also had Schatzki's ring and duodenal stenosis dilated -Convert IV PPI to p.o. Protonix 40 mg twice daily -? Carafate--> will discuss with GI -Full liquid diet -Troponin was mildly elevated and I suspect that this is demand ischemia -Echo performed and reveals an EF of 65% with no significant wall motion or valvular abnormalities -We will recommend outpatient follow-up with cardiology to determine if she needs any further testing -She does follow with Dr. Cheung as an outpatient -K to continue home aspirin -Continue to hold Xarelto until okay to reinitiate per gastroenterology -Serum creatinine has improved -Urine culture was sent and pending -UA was suggestive of infection and ceftriaxone was initiated -Will need GI follow-up after discharge Charges/Coding Visit Charges Inpatient E&M: 22567 Subs Hosp L2
[2022-02-18] MEDS: Metoprolol Tartrate 50 MG Tablet PO (11:39)
--- NOTE | 2022-02-18 11:50 | CASEMGMT ---
RN CM Face to Face with patient for initial transition planning/care coordination assessment. RN CM introduced self and role at [facility]. Patient sitting in chair, alert and oriented, sister at bedside. Patient willing to participate in assessment and is able to answer all questions appropriately. Care providers, pharmacy, and demographics verified. Patient wishes to discharge home, denies need for home health at this time. Patient states she has no further needs or concerns at this time. CM to follow for discharge planning needs that may arise. PCP: Paula Specialists: Ari, roller machine operator Luis Eduardo Argueta, continuing education specialist Preferred Pharmacy: [facility] retail at discharge Insurance: [email or web address] Prescription Benefit: yes Living Will/HPOA: none LNOK: , sister Living Arrangements: Patient lives with in a mobile home with 3 steps to enter the home. Patient states she is independent at home. Transportation: self/sister DME/HHC: patient states she has raised toilet, cane, walker at home. Patient has previously had [facility] Disposition Plan: Patient to discharge home with family support and follow-up plans in place. Heidy COLEMAN, RN, CM
[2022-02-18] MEDS: Lactated Ringers 1,000 ML 15 ML IV (13:07)
--- NOTE | 2022-02-18 13:30 | EGD_PTH ---
PATIENT: MILLER ACUNA LOC: [facility] U#:[id number] AGE/SX: 76/F ROOM: [facility] RE02/17/[address]: Dr. Marlen Tidwell DO : 1945 BED: 1 DIS: 02/19/2022 SPEC #: [id number] RECD: 02/18/22 14:34 STATUS: ERIC REKhadra #: [id number] VIKASH: 02/18/22 13:[address]: Kosta Allen DEPT: SURGICAL PATHOLOGY RECD BY: Nasim Lira ENTERED: 02/19/22 09:47 SP TYPE: EGD BIOPSY [facility] DR: MD Dr. Marlen Segal DO Dr. Nicholas F Kotsonis, MD Tissues: Esophagus, NOS Procedures: Special Stain Group II Surgery Specimen Level IV Alcian Blue/PAS (control) HEADER OPERATION: EGD (MAC) PRE-OP DIAGNOSIS: Upper GI bleeding TISSUE SUBMITTED: Distal esophagus biopsy MICROSCOPIC DIAGNOSIS Distal esophagus, biopsy: Gastroesophageal junctional mucosa with mild chronic inflammation and focal acute inflammation. No evidence of goblet cell metaplasia. See comment. AM:esteban 02/20/2022 COMMENT Alcian blue/PAS stain with matched control supports the above diagnosis. MICROSCOPIC DESCRIPTION Slides are reviewed. GROSS DESCRIPTION Received in fixative is one container labeled with the patient's name and designated distal esophagus. The specimen consists of multiple irregular fragments of light villanueva soft tissue that in aggregate measure 2.5 x 0.5 x 0.1 cm. The specimen is totally submitted in one cassette. / SJ:esteban 02/19/2022 TC:2 CPT: 10564, 51166
--- NOTE | 2022-02-18 14:09 | OP.EGD_ITS ---
Patient Name: Lanette Duarte Procedure Date: 02/18/2022 1:21 PM Date of : 1945 Age: 76 Procedure: Upper GI endoscopy Indications: Acute post hemorrhagic anemia Providers: Kosta Allen DO Medicines: See the Anesthesia note for documentation of the administered medications Patient Profile: This is a 76 year old female. Refer to note in patient chart for documentation of history and physical. Patient has symptoms. Complications: No immediate complications. Procedure: Pre-Anesthesia Assessment: - Prior to the procedure, a History and Physical was performed, and patient medications and allergies were reviewed. The patient is competent. The risks and benefits of the procedure and the sedation options and risks were discussed with the patient. All questions were answered and informed consent was obtained. Patient identification and proposed procedure were verified in the pre-procedure area. Mental Status Examination: alert and oriented. Airway Examination: normal oropharyngeal airway and neck mobility. Respiratory Examination: clear to auscultation. CV Examination: normal. Prophylactic Antibiotics: The patient does not require prophylactic antibiotics. Prior Anticoagulants: The patient has taken no previous anticoagulant or antiplatelet agents. ASA Grade Assessment: II - A patient with mild systemic disease. After reviewing the risks and benefits, the patient was deemed in satisfactory condition to undergo the procedure. The anesthesia plan was to use moderate sedation / analgesia (conscious sedation). Immediately prior to administration of medications, the patient was re-assessed for adequacy to receive sedatives. The heart rate, respiratory rate, oxygen saturations, blood pressure, adequacy of pulmonary ventilation, and response to care were monitored throughout the procedure. The physical status of the patient was re-assessed after the procedure. After obtaining informed consent, the endoscope was passed under direct vision. Throughout the procedure, the patient's blood pressure, pulse, and oxygen saturations were monitored continuously. The gastroscope was introduced through the mouth, and advanced to the second part of duodenum. The upper GI endoscopy was accomplished without difficulty. The patient tolerated the procedure well. Moderate Sedation: Moderate (conscious) sedation was administered by the endoscopy nurse and supervised by the endoscopist. The patient's oxygen saturation, heart rate, blood pressure and response to care were monitored. Total physician intraservice time was 15 minutes. Scope In: 1:46:37 PM Scope Out: 1:58:37 PM Total Procedure Duration Time 0 hours 12 minutes 0 seconds Findings: LA Grade B (one or more mucosal breaks greater than 5 mm, not extending between the tops of two mucosal folds) esophagitis with no bleeding was found 38 to 41 cm from the incisors. Biopsies were taken with a cold forceps for histology. Verification of patient identification for the specimen was done. Estimated blood loss was minimal. A moderate Schatzki ring was found in the lower third of the esophagus. A guidewire was placed and the scope was withdrawn. Dilation was performed with a Savary dilator with no resistance at 36 Fr. The dilation site was examined and showed. Estimated blood loss was minimal. One oozing cratered gastric ulcer with pigmented material was found at the pylorus. The lesion was 6 mm in largest dimension. For hemostasis, one hemostatic clip was successfully placed. There was no bleeding at the end of the procedure. An acquired benign-appearing, intrinsic moderate stenosis was found in the duodenal bulb and was traversed. A guidewire was placed and the scope was withdrawn. Dilation was performed with a Savary dilator with no resistance at 36 Fr. The dilation site was examined and showed mild improvement in luminal narrowing. Estimated blood loss was minimal. Impression: - LA Grade B reflux esophagitis. Biopsied. - Moderate Schatzki ring. Dilated. - Oozing gastric ulcer with pigmented material. Clip was placed. - Acquired duodenal stenosis. Dilated. Recommendation: - Return patient to [facility] for ongoing care. - Full liquid diet today. - No aspirin, ibuprofen, naproxen, or other non-steroidal anti-inflammatory drugs for 3 days. - Await pathology results. Procedure Code(s): --- Professional --- 69037, 59, Esophagogastroduodenoscopy, flexible, transoral; with control of bleeding, any method 62854, Esophagogastroduodenoscopy, flexible, transoral; with dilation of gastric/duodenal stricture(s) (eg, balloon, bougie) 61800, Esophagogastroduodenoscopy, flexible, transoral; with insertion of guide wire followed by passage of dilator(s) through esophagus over guide wire 25037, 59, Esophagogastroduodenoscopy, flexible, transoral; with biopsy, single or multiple 04223, 59, Moderate sedation services provided by the same physician or other qualified health reproductive healthcare assistant performing the diagnostic or therapeutic service that the sedation supports, requiring the presence of an independent trained observer to assist in the monitoring of the patient's level of consciousness and physiological status; initial 15 minutes of intraservice time, patient age 5 years or older CPT copyright 2017 [employer]. All rights reserved. The codes documented in this report are preliminary and upon orthopedic coder review may be revised to meet current compliance requirements. Kosta Allen DO 02/18/2022 2:08:45 PM This report has been signed electronically. Number of Addenda: 1 Note Initiated On: 02/18/2022 1:21 PM Addendum Number: 1 Addendum Date: 08/20/2022 6:17:46 AM MAC was used as sedation for this procedure. Kosta Allen DO 08/20/2022 6:17:51 AM This report has been signed electronically.
--- NOTE | 2022-02-18 14:09 | OP.CCLET_ITS ---
08/20/2022 Cr Mitchell Re : Upper GI endoscopy procedure for Lanette Duarte Dear Paula This procedure was performed on Friday, February 18, 2022. My impressions and recommendations are as follows: Impressions : - LA Grade B reflux esophagitis. Biopsied. - Moderate Schatzki ring. Dilated. - Oozing gastric ulcer with pigmented material. Clip was placed. - Acquired duodenal stenosis. Dilated. Recommendations : - Return patient to [facility] for [facility] care. - Full liquid diet today. - No aspirin, ibuprofen, naproxen, or other non-steroidal anti-inflammatory drugs for 3 days. - Await pathology results. My findings are described in the full procedure note, which is enclosed. If I can be of further assistance, please feel free to contact me at . Sincerely, Kosta Friend, 02/18/2022 2:08:45 PM This report has been signed electronically.
[2022-02-18] MEDS: Pantoprazole Sodium 40 MG Tablet PO (21:26)
[2022-02-18] MEDS: Atorvastatin Calcium 40 MG Tablet PO (21:26)
[2022-02-19 03:20] VITALS: BP 131/59; PULSE 89; RESP 16; TEMP 36.9; O2SAT 95
[2022-02-19 06:22] LABS: Absolute Lymphocyte Count 1.23 X10^3/uL (0.83-4.51); Absolute Neutrophil Count 7.3 X10^3/uL (2.0-7.7); Basophil# 0.04 X10^3/uL; Basophil% 0.4 % (0-1); Eosinophil# 0.15 X10^3/uL; Eosinophils% 1.6 % (0-5); Hematocrit 24.5 % (37-47); Hemoglobin 8.1 g/dL (12.0-15.0); Lymphocyte # 1.23 X10^3/ul (0.83-4.51); Lymphocyte % 13.2 % (19-41); Mean Corp Hgb Conc 33.1 g/dL (32-36); Mean Corpuscular Hgb 33.6 pg (27.0-32.0); Mean Corpuscular Volume 101.7 fL (81-99); Mean Platelet Vol. 9.9 fl (6.2-12.0); Monocyte# 0.64 X10^3/uL; Monocyte% 6.9 % (0-10); NRBC Flagged by Analyzer 0 % (0-5); Neutrophil # 7.25 X10^3/uL (2.7-7.7); Neutrophil % 77.6 % (47-70); Platelet Count 176 K/mm3 (150-450); RBC Distribution Width CV 13.6 % (11.6-14.6); RBC Distribution Width SD 50.4 fl (35.1-43.9); Red Blood Count 2.41 M/mm3 (4.2-5.4); White Blood Count 9.3 K/mm3 (4.4-11.0)
[2022-02-19 06:46] LABS: Anion Gap 5 (5-15); BUN 18 mg/dL (7-18); Calcium,Total 8.6 mg/dL (8.5-10.1); Chloride 112 mmol/L (98-107); Creatinine, Serum 0.75 mg/dL (0.55-1.02); EST Glomerular Filtration Rate 79 mL/min (>60); Est Glom Filt Rate - Afr Amer 96 mL/min (>60); Estimated Creatinine Clearance 40.26 ml/min; Glucose 97 mg/dL (74-106); Potassium 3.8 mmol/L (3.5-5.1); Sodium Level 141 mmol/L (136-145)
[2022-02-19 07:30] VITALS: PULSE 117
[2022-02-19 08:30] VITALS: BP 123/64; PULSE 104; RESP 18; TEMP 37.2; O2SAT 97
[2022-02-19 08:31] VITALS: PULSE 105
[2022-02-19] MEDS: Pantoprazole Sodium 40 MG Tablet PO (08:31)
[2022-02-19] MEDS: Metoprolol Tartrate 50 MG Tablet PO (08:31)
[2022-02-19] MEDS: 0.9% Normal Saline 1,000 ML 75 ML IV (11:01)
--- NOTE | 2022-02-19 11:29 | PCM.DC ---
Discharge Instructions Diet Discharge Diet: Light diet - advance as tolerated Activity Discharge Activity: Return to Normal Activity Dressing / Incision Call your doctor if you observe: Shortness of breath, Dizziness and Chest pain Follow Up Care Test Results: Test results from this visit will be discussed in further detail at your follow-up appointment, if applicable. Discharge Plan Admission Admit Date/Time: 02/17/22 14:40 Primary Reason for Your Visit: GI Bleed Attending Provider: Marlen Tidwell Primary Care Provider: Cr Mitchell Discharge Orders/Prescriptions Prescriptions: New pantoprazole 40 mg Tablet,Delayed Release (Dr/Ec) 40 mg PO BID 30 Days Qty: 60 RF: 0 cefadroxil 500 mg capsule 500 mg PO BID Qty: 10 RF: 0 Continued atorvastatin 40 mg Tablet 40 mg PO DAILY RF: 0 calcium carbonate 500 mg calcium (1,250 mg) Tablet 1,000 mg PO DAILY RF: 0 metoprolol tartrate 50 mg Tablet 50 mg PO BID RF: 0 loratadine [Claritin] 10 mg Tablet 10 mg PO DAILY RF: 0 vitamin B complex Capsule 1 cap PO DAILY RF: 0 multivitamin,zv-dski-Hq-FA-min 27-0.4 mg Tablet 1 tab PO DAILY RF: 0 Changed lisinopril 20 mg Tablet 10 mg PO DAILY Qty: 0 RF: 0 Held aspirin [Aspirin Low Dose] 81 mg Tablet,Delayed Release (Dr/Ec) 81 mg PO DAILY RF: 0 Hold Instructions: Resume on 02/20/22. Xarelto 10 mg Tablet 10 mg PO DAILY RF: 0 Hold Instructions: Resume on 02/26/22. Until follow up with PCP Discontinued vitamin E 1,000 unit Capsule 1,000 unit PO DAILY RF: 0 hydrochlorothiazide 12.5 mg Capsule 12.5 mg PO DAILY RF: 0 Referrals / Follow Up: Cr Mitchell MD [Primary Care Provider] - In 1 Week Kosta Allen DO [STAFF PHYSICIAN] - Within 1 Month Armen Cheung MD [NON-STAFF] - Within 2 Weeks Disposition Disposition (needs filled in before D/C Order can be placed): Home, Self Care
[2022-02-19 11:30] VITALS: PULSE 71
--- NOTE | 2022-02-19 11:45 | CASEMGMT ---
This RN CM to room and pt states no concerns with going home at discharge. Pt voices no need for any further resources/therapy. SStaten RN CM
--- NOTE | 2022-02-19 11:46 | PCM.DC.SUM ---
Documented by User: Sarah Mark NP, MOBILITY SCOOTER REPAIRER-C 02/19/22 11:52 Providers Date of Admission: 02/17/22 Date of Discharge: 02/19/22 Primary Care Physician: Dr. Cr Mitchell MD Consultations 02/17/22 15:41 Consult: Gastroenterology Routine Consulting Provider: [facility] Reason for Consult: GI bleed EMERGENT Consult: No MD Notified: Yes Date Notified: 02/17/22 Time Notified: 17:09 Method of Notification: Text Reason For Visit: GI BLEED Diagnosis Discharge Diagnosis (1) Gastrointestinal bleeding, upper: Status: Acute Code(s): K92.2 - Gastrointestinal hemorrhage, unspecified (2) Elevated troponin: Status: Acute Code(s): R77.8 - Other specified abnormalities of plasma proteins (3) Chest pain: Status: Acute Code(s): R07.9 - Chest pain, unspecified (4) Acute blood loss anemia: Status: Acute Code(s): D62 - Acute posthemorrhagic anemia (5) Duodenal stenosis: Status: Acute Code(s): K31.5 - Obstruction of duodenum (6) Gastric ulcer: Status: Acute Code(s): K25.9 - Gastric ulcer, unspecified as acute or chronic, without hemorrhage or perforation (7) Leukocytosis: Status: Acute Code(s): D72.829 - Elevated white blood cell count, unspecified (8) Elevated serum creatinine: Status: Acute Code(s): R79.89 - Other specified abnormal findings of blood chemistry (9) Suspected UTI: Status: Acute Code(s): R39.89 - Other symptoms and signs involving the genitourinary system Medications at Discharge Home Medications Xarelto 10 mg PO DAILY 02/17/22 aspirin [Aspirin Low Dose] 81 mg PO DAILY 02/17/22 atorvastatin 40 mg PO DAILY 02/17/22 calcium carbonate 1,000 mg PO DAILY 02/17/22 loratadine [Claritin] 10 mg PO DAILY 02/17/22 metoprolol tartrate 50 mg PO BID 02/17/22 multivitamin,ve-tiqn-Ez-FA-min 1 tab PO DAILY 02/17/22 vitamin B complex 1 cap PO DAILY 02/17/22 cefadroxil 500 mg PO BID #10 cap 02/19/22 lisinopril 10 mg PO DAILY #0 tab 02/19/22 pantoprazole 40 mg PO BID 30 Days #60 tab 02/19/22 Hospital Course Summary of Care Provided Hospital Course: Patient is a 76-year-old female admitted 02/17/2022 due to weakness and diarrhea. 1. Acute blood loss anemia secondary to GI bleed-underwent EGD which demonstrated grade B reflux esophagitis, moderate Schatzki ring, dilated, oozing gastric ulcer with pigmented material, clip placed and acquired duodenal stenosis which was dilated. Per GI, may resume aspirin 02/20/2022. Continue to hold Xarelto until follow-up with PCP. Patient states she had a remote history of PE approximately 10 years ago with no known risk factors. If no clear indication to be on long-term anticoagulation, recommend discussing with PCP discontinuing Xarelto going forward. Continue twice daily PPI. Pathology pending. Follow-up with GI in 2 to 4 weeks. 2. Elevated troponin, demand ischemia secondary to #1-enzymes did not trend. EKG with nonspecific ST changes. Echocardiogram demonstrated an EF of 65%. Follow-up with primary dowel machine operator in 1 week. 3. Acute UTI- IV Rocephin during admission, transition to Duricef to complete course. 4. CAD with history of stents-on aspirin, statin, metoprolol. 5. Hypertension-continue metoprolol. HCTZ discontinued at discharge. Lisinopril reduced to 10 mg daily. 6. Hyperlipidemia- continue statin. 7. History of PE- on xarelto. Discussed with PCP discontinuing as noted above. 8. Elevated creatinine-unknown baseline. Mild dehydration resolved. No evidence of CKD. Resolved. HCTZ discontinued at discharge. Physical Exam Const alert, oriented x3 and no apparent distress Orientation / Consciousness: awake, oriented to person, oriented to place and oriented to time HEENT normocephalic and moist oral mucous membranes Eyes PERRL, EOMs intact bilaterally and conjunctivae normal Neck no lymphadenopathy Resp normal respiratory effort and clear to auscultation bilaterally Cardio regular rate, regular rhythm and no murmurs Peripheral Pulses: pulses 2+ throughout GI normal to inspection, nondistended, normoactive bowel sounds, non-tender and non-distended Extremity normal to inspection Skin no rashes or lesions noted Lesions: no lesions Rashes: no rashes Trauma: no lacerations or abrasions Neuro CN's II-XII intact bilaterally, no focal motor deficits, no sensory deficits noted and deep tendon reflexes 2+ bilaterally Psych mental status grossly normal and affect normal Patient seen and examined prior to discharge. Physical assessment as noted above. Patient is stable for discharge with follow up recommendations as noted above. This patient was seen by FREDA Stephens under the supervision of Dr. Tidwell. Weight / BMI Weight Weight: 121 lb 4.068 oz Body Mass Index (BMI) 17.9 ABG / Lab / Microbiology Data Result Diagrams: 02/19/22 06:07 02/19/22 06:07 Laboratory: Laboratory Results - last 24 hr 02/19/22 06:07: WBC 9.3, RBC 2.41 L, Hgb 8.1 L, Hct 24.5 L, MCV 101.7 H, MCH 33.6 H, MCHC 33.1, RDW Std Deviation 50.4 H, RDW Coeff of Annemarie 13.6, Plt Count 176, MPV 9.9, Immature Gran % (Auto) 0.300, Neut % (Auto) 77.6 H, Lymph % (Auto) 13.2 L, [place] % (Auto) 6.9, Eos % (Auto) 1.6, Baso % (Auto) 0.4, Absolute Neuts (auto) 7.3, Absolute Lymphs (auto) 1.23, Nucleated RBC % 0 02/19/22 06:07: Sodium 141, Potassium 3.8, Chloride 112 H, Carbon Dioxide 24.0, Anion Gap 5, BUN 18, Creatinine 0.75, Estim Creat Clear Calc 40.26, Est GFR (MDRD) Af Amer 96, Est GFR (MDRD) Non-Af 79, BUN/Creatinine Ratio 24.0 H, Glucose 97, Calcium 8.6 Microbiology: Microbiology 02/17/22 15:55 Urine, Clean Catch Urine Culture - Preliminary Presumptive E. coli 02/18/22 08:48 Nasal Secretion SARS-CoV-2 Antigen (Rapid) - Final 02/17/22 Unknown Stool Stool Occult Blood (STEFANO) - Final Occult Blood Positive Radiography Diagnostic Testing: Radiology Impression Echocardiogram 02/17/22 16:05 Interpretation Summary The estimated ejection fraction is 65 %. No significant valvular abnormalities Ordering Physician: Sarah Mark Referring Physician: Cr Mitchell Performed By: Peggy Ye RDCS, RVT D/C Instructions Discharge Diet: Light diet - advance as tolerated Call your doctor if you observe: Shortness of breath, Dizziness and Chest pain Meaningful Use Info Meaningful Use Diagnoses (Choose all that apply): None applicable Discharge Plan Admission Admit Date/Time: 02/17/22 14:40 Primary Reason for Your Visit: GI Bleed Attending Provider: Marlen Tidwell Primary Care Provider: Cr Mitchell Discharge Orders/Prescriptions Prescriptions: New pantoprazole 40 mg Tablet,Delayed Release (Dr/Ec) 40 mg PO BID 30 Days Qty: 60 RF: 0 cefadroxil 500 mg capsule 500 mg PO BID Qty: 10 RF: 0 Continued atorvastatin 40 mg Tablet 40 mg PO DAILY RF: 0 calcium carbonate 500 mg calcium (1,250 mg) Tablet 1,000 mg PO DAILY RF: 0 metoprolol tartrate 50 mg Tablet 50 mg PO BID RF: 0 loratadine [Claritin] 10 mg Tablet 10 mg PO DAILY RF: 0 vitamin B complex Capsule 1 cap PO DAILY RF: 0 multivitamin,uh-ukba-Rz-FA-min 27-0.4 mg Tablet 1 tab PO DAILY RF: 0 Changed lisinopril 20 mg Tablet 10 mg PO DAILY Qty: 0 RF: 0 Held aspirin [Aspirin Low Dose] 81 mg Tablet,Delayed Release (Dr/Ec) 81 mg PO DAILY RF: 0 Hold Instructions: Resume on 02/20/22. Xarelto 10 mg Tablet 10 mg PO DAILY RF: 0 Hold Instructions: Resume on 02/26/22. Until follow up with PCP Discontinued vitamin E 1,000 unit Capsule 1,000 unit PO DAILY RF: 0 hydrochlorothiazide 12.5 mg Capsule 12.5 mg PO DAILY RF: 0 Referrals / Follow Up: Cr Mitchell MD [Primary Care Provider] - In 1 Week Friend,DO Kosta [STAFF PHYSICIAN] - Within 1 Month Armen Cheung MD [NON-STAFF] - Within 2 Weeks Disposition Disposition (needs filled in before D/C Order can be placed): Home, Self Care Documented by User: Dr. Marlen Tidwell DO 02/19/22 13:37 Providers Date of Admission: 02/17/22 Reason For Visit: GI BLEED Medications at Discharge Home Medications Xarelto 10 mg PO DAILY 02/17/22 aspirin [Aspirin Low Dose] 81 mg PO DAILY 02/17/22 atorvastatin 40 mg PO DAILY 02/17/22 calcium carbonate 1,000 mg PO DAILY 02/17/22 loratadine [Claritin] 10 mg PO DAILY 02/17/22 metoprolol tartrate 50 mg PO BID 02/17/22 multivitamin,pj-cdtb-Qa-FA-min 1 tab PO DAILY 02/17/22 vitamin B complex 1 cap PO DAILY 02/17/22 cefadroxil 500 mg PO BID #10 cap 02/19/22 lisinopril 10 mg PO DAILY #0 tab 02/19/22 pantoprazole 40 mg PO BID 30 Days #60 tab 02/19/22 Hospital Course Operations None Procedures 2-D Echocardiogram and EGD Summary of Care Provided Minutes Spent on Discharge: 41 Hospital Course: Mrs. Duarte is a 76-year-old white female who presented to the emergency department at [facility] on 02/17/2022 with weakness and diarrhea. She had described the diarrhea as black and tarry in nature. She reported that she had increased fatigue with spending much of her day sleeping over the last 2 days and this is not her baseline. She also complained of some chest pressure and dyspnea on exertion. She is on aspirin and Xarelto 10 mg daily for history of pulmonary embolism. She reports her pulmonary embolism was approximately 10 years ago and she had no previous history PE or DVT nor any family history of hypercoagulable state. She reported she had initially been on Coumadin with but was transitioned to Xarelto. Her initial hemoglobin was 11.4 in the emergency department however she was Hemoccult positive and had an elevated BUN and creatinine however the BUN was higher than expected with her creatinine elevation. She was admitted to PCU given her chest pain and concern for GI bleed and gastroenterology was consulted. She was placed on Protonix IV push twice daily and her aspirin and Xarelto were held. She was kept n.p.o. and an EGD was performed on 02/18/2022 at which time grade B esophagitis was noted as well as a moderate Schatzki's ring which was dilated, an oozing gastric ulcer with pigmented material and acquired duodenal stenosis which was also dilated. Given the oozing gastric ulcer Hemoclip was placed and excellent hemostasis was noted prior to the end of her procedure. Gastroenterology recommended no NSAIDs including aspirin for 3 more days and she was initiated on a full liquid diet. Of note her hemoglobin did drop from 11.6 on admission to 8.5 on 02/18/2022. She demonstrated stability of her hemoglobin with it being 8.1 on the day of discharge. On admission a UA was obtained and felt to be consistent with urinary tract infection therefore urine culture was sent and the patient was placed on ceftriaxone. Her urine culture grew out presumptive E. coli greater than 100,000 CFU's per mL and the patient was therefore sent home with oral antibiotics the form of Duricef at discharge to complete a course. Her troponin was mildly elevated during her hospitalization and was trended. Initial troponin was 270 and a repeat troponin was 229. Given these findings an echocardiogram was performed and showed an EF of 65% with no significant wall motion abnormalities or valvular abnormalities. With a normal echocardiogram, and resolution of chest pain that she presented with we felt that it was most likely a troponin elevation due to her acute bleeding however we do recommend she follow-up with Dr. Cheung who is her dowel machine operator in [place]. She states that she has not seen him in approximately 2 years. We also recommend she follow-up with her primary care physician to discuss whether or not she should continue her Xarelto. She is on a subtherapeutic dose for PE and given her recent GI bleed, lack of recurrent clotting issues, and lack of family history it may be more prudent to discontinue this entirely and monitor her clinically. Pathology from biopsies were pending upon discharge and the patient will follow up with car clerk pullman in 2 to 4 weeks. She is to maintain Protonix 40 mg p.o. twice daily during this time. She is to follow-up with her primary care physician within the next 1 to 2 weeks. Discharge diagnoses: Upper GI bleed Gastric ulcer Acute blood loss anemia Duodenal stenosis Schatzki's ring Reflux esophagitis Mild troponin elevation Urinary tract infection-E. coli CAD Hypertension Hyperlipidemia History of pulmonary embolism Mild serum creatinine elevation-resolved Physical Exam Const alert, oriented x3 and no apparent distress Constitutional Narrative: Thin elderly white female sitting up in chair at the bedside watching television eating breakfast, appears comfortable and nontoxic General Appearance: cooperative, comfortable, well kempt and well developed Orientation / Consciousness: awake, oriented to person, oriented to place and oriented to time Exam Limitations: no limitations Nutritional Appearance: thin HEENT normocephalic, head/scalp atraumatic and moist oral mucous membranes HEENT Narrative: Mildly hard of hearing, no thrush Eyes PERRL, EOMs intact bilaterally and conjunctivae normal Eyes Narrative: No scleral icterus Neck no lymphadenopathy and supple Neck Narrative: Trachea midline, no thyroid enlargement Resp normal respiratory effort, no retractions, no use of accessory muscles and clear to auscultation bilaterally Auscultation: Negative for crackles, rales, rhonchi or wheezes Cardio regular rate, regular rhythm, S1 normal heart sound, S2 normal heart sound, no murmurs, no rub, no gallops, no clicks and no JVD Cardio Narrative: Patient does have a markedly convex breastbone Peripheral Pulses: pulses 2+ throughout GI normal to inspection, nondistended, normoactive bowel sounds, soft to palpation, non-tender and non-distended Extremity normal to inspection and no clubbing, cyanosis or edema Extremity Narrative: Decreased lean muscle mass Skin no rashes or lesions noted, no wounds, skin turgor normal and no jaundice Lesions: no lesions Rashes: no rashes Trauma: no lacerations or abrasions Neuro oriented x3, CN's II-XII intact bilaterally, moves all extremities, no focal motor deficits, no sensory deficits noted and deep tendon reflexes 2+ bilaterally Neuro Narrative: Mild generalized weakness-proximal greater than distal Sensorium / Orientation: awake and alert Speech: speech normal Psych mental status grossly normal and affect normal ABG / Lab / Microbiology Data Result Diagrams: 02/19/22 06:07 02/19/22 06:07 Discharge Plan Admission Admit Date/Time: 02/17/22 14:40 Primary Reason for Your Visit: GI Bleed Attending Provider: Marlen Tidwell Primary Care Provider: Cr Mitchell Discharge Orders/Prescriptions Prescriptions: New pantoprazole 40 mg Tablet,Delayed Release (Dr/Ec) 40 mg PO BID 30 Days Qty: 60 RF: 0 cefadroxil 500 mg capsule 500 mg PO BID Qty: 10 RF: 0 Continued atorvastatin 40 mg Tablet 40 mg PO DAILY RF: 0 calcium carbonate 500 mg calcium (1,250 mg) Tablet 1,000 mg PO DAILY RF: 0 metoprolol tartrate 50 mg Tablet 50 mg PO BID RF: 0 loratadine [Claritin] 10 mg Tablet 10 mg PO DAILY RF: 0 vitamin B complex Capsule 1 cap PO DAILY RF: 0 multivitamin,ra-xbkv-Hr-FA-min 27-0.4 mg Tablet 1 tab PO DAILY RF: 0 Changed lisinopril 20 mg Tablet 10 mg PO DAILY Qty: 0 RF: 0 Held aspirin [Aspirin Low Dose] 81 mg Tablet,Delayed Release (Dr/Ec) 81 mg PO DAILY RF: 0 Hold Instructions: Resume on 02/20/22. Xarelto 10 mg Tablet 10 mg PO DAILY RF: 0 Hold Instructions: Resume on 02/26/22. Until follow up with PCP Discontinued vitamin E 1,000 unit Capsule 1,000 unit PO DAILY RF: 0 hydrochlorothiazide 12.5 mg Capsule 12.5 mg PO DAILY RF: 0 Referrals / Follow Up: Cr Mitchell MD [Primary Care Provider] - In 1 Week Kosta Allen DO [STAFF PHYSICIAN] - Within 1 Month Armen Cheung MD [NON-STAFF] - Within 2 Weeks Disposition Disposition (needs filled in before D/C Order can be placed): Home, Self Care Charges/Coding Visit Charges Inpatient E&M: 00987 Disch Hosp
[2022-02-19 13:30] VITALS: BP 105/57; PULSE 84; RESP 16; TEMP 36.9; O2SAT 96
== END 2022-02-19 13:53 | disposition home or self-care (01) | DRG 812 ==
LOC: ED 14:26 → PCU 14:51
PROVIDERS: Anesthesiology; Internal Medicine Gastroenterology; Admitting Provider Family Medicine; Emergency Provider Emergency Medicine; PCP Family Medicine; Visit Provider Internal Medicine
PROC: 0DJ08ZZ Inspection of Upper Intestinal Tract, Via Natural or Artificial Opening Endoscopic (ICD-10-PCS; CPT 43235; principal; 2022-02-18 13:25)
DX: D62 Acute posthemorrhagic anemia (principal); K31.5 Obstruction of duodenum; I24.8 Other forms of acute ischemic heart disease; N39.0 Urinary tract infection, site not specified; K22.2 Esophageal obstruction; E78.5 Hyperlipidemia, unspecified; I25.10 Atherosclerotic heart disease of native coronary artery without angina pectoris; I44.4 Left anterior fascicular block; F41.9 Anxiety disorder, unspecified; I10 Essential (primary) hypertension; E86.0 Dehydration; B96.20 Unspecified Escherichia coli [E. coli] as the cause of diseases classified elsewhere; I25.2 Old myocardial infarction; K25.9 Gastric ulcer, unspecified as acute or chronic, without hemorrhage or perforation; K21.00 Gastro-esophageal reflux disease with esophagitis, without bleeding; Z79.82 Long term (current) use of aspirin; Z79.01 Long term (current) use of anticoagulants; Z87.891 Personal history of nicotine dependence; R77.8 Other specified abnormalities of plasma proteins; R07.9 Chest pain, unspecified; Z86.711 Personal history of pulmonary embolism; Z95.5 Presence of coronary angioplasty implant and graft
CPT/HCPCS: 36415; 71045; 80048; 80053; 81001; 82274; 84484; 85025; 85610; 85730; 87086; 87088; 87186; 87426; 88305; 88313; 93005; 93306; 99285; J7030; J7120; A4216; J0696; J2405

== ENCOUNTER 2023-08-19 15:00 | Outpatient (RCR) | payer MEDICARE, SELFPAY ==
[2023-08-05 15:13] VITALS: BP 143/93; PULSE 70; RESP 16; TEMP 36.3; BMI 18.0
[2023-08-10 10:22] VITALS: BP 171/73; PULSE 70; RESP 16; TEMP 36.5; BMI 18.0
--- NOTE | 2023-08-10 10:53 | PN.PCM_ITS ---
History of Present Illness Date of Service: 08/10/23 Subjective Subjective Mrs. Duarte is an 78-year-old female following up with the wound care center at [facility] for full-thickness ulceration to left leg secondary to cat injury. Patient has been changing her dressing at home with Carina Betadine paint and dry sterile dressing. At time of interview today, patient admits to 2 heart attacks in the past with stent placement. Overall the patient's wound seems to be slow to heal. She denies any new onset of trauma. She denies constitutional symptoms. No other pedal complaints at this time. Objective Data Objective Data Vital Signs: Vital Signs Temp Pulse Resp BP O2 Del Method 97.7 F L 70 16 171/73 H Room Air 08/10/23 10:22 08/10/23 10:22 08/10/23 10:22 08/10/23 10:08/10/23 10:22 Oxygen Delivery Method Room Air Weight: 55.338 kg Body Mass Index (BMI) 18.0 Lab / Micro Data Attestation: I reviewed the patient's lab results. Physical Exam Narrative Neurovascular status unchanged. Full-thickness ulceration to the left medial leg measuring 2.3 x 1.0 x 0.2 cm. Wound base is granular nature. Sanguinous drainage noted after debridement. Skin temperature gradient is warm to cool from proximal ankle to distal digits with evidence of varicosities appreciated bilateral. No pain with calf compression. Excision debridement down to including subcutaneous tissue of the medial leg wound with number 5 mm dermal curette without incident. Predebridement measurements are 2.2 x 0.9 x 0.1 cm. Postdebridement measurements are 2.3 x 1.0 x 0.2 cm. Debridement Note Debridement Note Debridement Free Text: Excision debridement down to including subcutaneous tissue of the medial leg wound with number 5 mm dermal curette without incident. Predebridement measurements are 2.2 x 0.9 x 0.1 cm. Postdebridement measurements are 2.3 x 1.0 x 0.2 cm. Post-Debridement Measurements and Additional Note: Post-Debridement Measurements/Treatment WC - Nurse 1 - General Ulcer Assessment Start: 08/05/23 15:11 Freq: Status: Active Protocol: AMIRAHT Activity Type Activity Date Activity User E-sign Co-sign Detail Recorded Client Recorded Date Recorded By Document 08/05/23 15:13 [facility] [id number] 08/05/23 15:28 [facility] Document 08/10/23 10:22 [facility] Desktop 08/10/23 10:26 [facility] 08/05/23 08/10/23 15:13 10:22 WC - Today's Visit Information Type of service Initial Visit 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 ) Arrival Mode Ambulatory,Cane Ambulatory Transfer Assistance Stretcher None Accompanied by SISTER IN LOBBY SISTER Patient Identification Verified (Name & Yes Yes ) Patient Requires Transmission-Based No No Precautions Height and Weight Height 5 ft 9 in Weight 55.338 kg Weight in Pounds 122.0 lbs Weight Measurement Method Stated by Patient Body Mass Index (BMI) 18.0 18.0 BMI Classification Underweight Underweight BSA - Mandeep 1.67 Vital Signs Temperature (97.8 F-99.1 F) 97.3 F L 97.7 F L Temperature Source Temporal Temporal Pulse Rate (60-100) 70 70 Pulse Location Monitor Apical Respiratory Rate (12-18) 16 16 Respiratory rate source Observation Observation Oxygen Delivery Method Room Air Room Air Blood Pressure (90/60-120/80) 143/93 H 171/73 H Blood Pressure Mean (mm Hg) 109 105 Source Monitor Monitor Position Sitting Sitting Blood Pressure Location Right Arm Left Arm History Since Last Visit- (Skip if this is Patient's initial visit) Have you changed medications since your No last visit? Any new allergies or adverse reactions No Had a fall/change in ADL's that may No increase risk of falls Signs or symptoms of abuse and/or No neglect since last visit Have you been in the hospital since your No last visit? Has dressing in place as prescribed Yes Has compression in place as prescribed Yes Has offloadiing in place as prescribed N/A Experienced any changes in pain level or No management Left Footwear Regular Shoe Regular Shoe Right Footwear Regular Shoe Regular Shoe Pain Scale: 0-10 Numeric Is Patient Pain Free? Yes Yes Lower Extremity Assessment/ Foot Assessment/ Toe Nail Assessment Right -Posterior Tibial Doppler Monophasic -Dorsalis Pedis Doppler Monophasic -Extremity Color Dusky, Hyperpigmented -Hair Growth on Legs No -Hair Growth on Toes No -Temperature of Extremity Cool -Capillary Refill Less than 3 Seconds -Other Deformity No -Prior Foot Ulcer No -Charcot Joint No -Prior Amputation No -Thick Yes -Discolored Yes -Deformed No -Improper Length & Hygeine No Left -Posterior Tibial Doppler Monophasic -Dorsalis Pedis Doppler Monophasic -Extremity Color Dusky, Hyperpigmented -Hair Growth on Legs No -Hair Growth on Toes No -Temperature of Extremity Cool -Capillary Refill Less than 3 Seconds -Other Deformity No -Prior Foot Ulcer No -Charcot Joint No -Prior Amputation No -Thick Yes -Discolored Yes -Deformed No -Improper Length & Hygeine No Neuropathy Assessment Feet - Top Side and Bottom <Entered> (a) Communication Assessment Preferred language Maltese 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 Back Tender Required No Able to Read Yes Able to Write Yes Communication Tools None Right Hearing Abillity Normal Left Hearing Abillity Normal Visual Assistive Devices Glasses Teaching Assessment Preferences Verbal,Written, Audio/Visual, Demonstration Barriers to Learning None Readiness To Learn Excellent Willingness to Engage in Self Management High Activies Readiness to Engage in Self Management High Activities Anxiety Level Calm Cooperation Cooperative Perception Coherent Interest in Health Problem Asks Questions Education Importance Acknowledges Need Does Patient Smoke tobacco or other No substances Smoking Status Former smoker Is Patient Diabetic No Functional Assessment Recent Decline in Ability to Perform Denies Any Declines 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 Cultural/Spiritism Needs that may affect No Treatment Plan Teaching: Wound Center *Welcome to the Wound Center -Person Taught Patient -Teaching Method Discussion -Response to teaching Verbalize understanding Welcome to the Wound Care Center Maltese (a) 1 - - 2 - - 3 - + 4 - + 5 - + 6 - - WC - Nurse 1 - General Ulcer Measurement Start: 08/05/23 15:11 Freq: Status: Active Protocol: Activity Type Activity Date Activity User E-sign Co-sign Detail Recorded Client Recorded Date Recorded By Document 08/05/23 15:13 [facility] [id number] 08/05/23 15:28 [facility] Document 08/10/23 10:22 [facility] Desktop 08/10/23 10:26 [facility] 08/05/23 08/10/23 15:13 10:22 Wound Center Nurse 1 #1- LLE MEDIAL (TRAUMA) -Combined with other wound No No -Current Size (cm) - Length 2 2.2 -Current Size (cm) - Width 0.9 0.9 -Current Size (cm) - Depth 0.1 0.2 -Total Square Cm 1.8 1.98 -Date of Last Picture (Recall this 08/05/23 08/10/23 field) -Photo Taken Yes Yes -Epithelialization None Present Small 1-33% -Tunneling No No -Undermining/Tunneling No No -Circular Undermining No No -Exudate Amt Small Medium -Exudate Type Serosanguineous Serosanguineous -Wound Margin Distinct, Flat & Intact Outline Attached -Granulation Amt None Present (0 Medium (34-66%) %) -Granulation Quality Red -Slough/Fibrin Yes Yes -Necrosis Amt Large (67-100%) Medium (34-66%) -Necrotic Tissue Type Eschar Adherent Slough -Texture (Jaimie-wound Skin Appearance) Assessed Assessed, Scarring -Moisture (Jaimie-wound Skin Appearance) Assessed Assessed, Maceration -Color (Jaimie-wound Skin Appearance) Assessed, Assessed Ecchymosis -Temperature (Jaimie-wound Skin No Abnormality No Abnormality Appearance) (Pt Warm) (Pt Warm) -Tenderness on Palpation (Jaimie-wound No No Skin Appearance) -Ulcer Cleansing Rinsed/ Rinsed/ Irrigated with Irrigated with Saline Saline -Foul Odor after Cleansing No No -Anesthetic Used 5% Lidocaine 5% Lidocaine Gel Gel Right Calf (cm) 31.3 Right Ankle (cm) 18.4 Left Calf (cm) 33 Point of measurement (cm from the medial 31.7 instep) Left Ankle (cm) 18.8 Point of Measurement (cm from the medial 18.8 instep) WC - Nurse 2 - General Ulcer CM Notes Start: 08/05/23 15:11 Freq: Status: Active Protocol: Activity Type Activity Date Activity User E-sign Co-sign Detail Recorded Client Recorded Date Recorded By Document 08/05/23 15:56 [id number] 08/05/23 15:59 Document 08/10/23 10:38 Desktop 08/10/23 10:40 08/05/23 08/10/23 15:56 10:38 Wound Center Nurse 2 #1- LLE MEDIAL (TRAUMA) -Time 15:58 10:38 -Correct Patient Yes Yes -Correct Side, Site, Position Yes Yes -Correct Procedure Yes Yes -Procedure Performed Yes Yes -Type of Procedure Debridement Debridement -Clinical Debridement Subcutaneous Subcutaneous -Tissue Removed Subcutaneous Subcutaneous -Post Debridement (cm) - Length 2.2 2.3 -Post Debridement (cm) - Width 1.1 1.0 -Post Debridement (cm) - Depth 0.3 0.2 -Total Square (Post) (cm) 2.42 2.30 -Area of Debridement (cm) - Length 2.2 2.3 -Area of Debridement (cm) - Width 1.1 1.0 -Total Square (Area) (cm) 2.42 2.30 -Tunneling No No -Undermining/Tunneling No No -Circular Undermining No No -Wound/Ulcer Outcome Not Healed Not Healed -Ulcer Cleansing Rinsed/ Rinsed/ Irrigated with Irrigated with Saline Saline -Foul Odor after Cleansing No No -Bioengineered Tissue No No -Bleeding Controlled with Pressure Pressure -Treatment Response Procedure Procedure Tolerated Well Tolerated Well -Offloading No No -Debridement - Subq, 1st 20sq cm Yes Yes Pain Scale: 0-10 Numeric Is Patient Pain Free? Yes Yes - Nurse 3 - General Ulcer D/C NN Start: 08/05/23 15:11 Freq: Status: Active Protocol: Activity Type Activity Date Activity User E-sign Co-sign Detail Recorded Client Recorded Date Recorded By Document 08/05/23 16:06 RB [id number] 08/05/23 16:08 RB Document 08/10/23 10:50 DL Desktop 08/10/23 10:51 DL 08/05/23 08/10/23 16:06 10:50 Wound Care Center Nurse 3 #1- LLE MEDIAL (TRAUMA) -Ulcer Cleansing Wound Cleanser -Foul Odor after Cleansing No -Primary Dressing Applied Mepilex Border, Promogran Promogran Carina Matter Carina Matter -Other Dressing betadine -Primary Dressing Covered/Secured with Dry Gauze & Roll Gauze, Secured with Tape -Mepilex Border 1 -Promogran Carina Matter 1 1 Left -Tubular Bandage Single Layer Single Layer -Size of Tubigrip Used Size D Size D -Size D ($) 1 2 Treatment Response Procedure Procedure Tolerated Well Tolerated Well Pain Scale: 0-10 Numeric Is Patient Pain Free? Yes Yes Teaching: Wound Center Dressing Your Wound -Person Taught Patient -Teaching Method Discussion, Demonstration -Response to teaching Verbalize understanding Compression Wraps & Stockings -Person Taught Patient -Teaching Method Discussion, Demonstration WC - Visit Discharge Discharge Condition Stable Stable Ambulatory Status Ambulatory Ambulatory Transportation Private Auto Private Auto Medication Reconcilliation completed & No provided to patient/care provider Clinical Summary of Care Provided Yes Notes: dressing assisted by Sunita Ferrari RN Assessment/Plan Assessment/Plan (1) Laceration of left lower leg without foreign body: CODE(S): S81.812A - Laceration without foreign body, left lower leg, initial encounter QUALIFIERS: Encounter type: subsequent encounter Qualified Code(s): S81.812D - Laceration without foreign body, left lower leg, subsequent encounter PLAN: Patient was examined evaluated. All findings were discussed with the patient. All questions were answered to the patient's satisfaction. Excision debridement down to including subcutaneous tissue of the medial leg wound with number 5 mm dermal curette without incident. Predebridement measurements are 2.2 x 0.9 x 0.1 cm. Postdebridement measurements are 2.3 x 1.0 x 0.2 cm. Ulceration was dressed with Carina, Betadine paint and dry sterile dressing. Due to the patient's past history of cardiac surgery with stent placement secondary to arthrosclerosis we will begin authorization for peripheral vascular studies consisting of PVRs with TBI's as well as venous reflux studies due to the patient's history of venous leg ulcerations. Patient was educated on the studies would like to move forward with them. Follow-up in 1 week. (2) Peripheral vascular disease: CODE(S): I73.9 - Peripheral vascular disease, unspecified (3) Venous insufficiency: CODE(S): I87.2 - Venous insufficiency (chronic) (peripheral) (4) Pain in left leg: CODE(S): M79.605 - Pain in left leg
--- NOTE | 2023-08-10 11:16 | PCM.WC.HP ---
History of Present Illness Date of Service: 08/05/23 Chief Complaint: Full-thickness wound to the left leg secondary to cat injury. History of Wound: Mrs. Duarte is an 78-year-old female seen at wound care clinic today at [facility] secondary to injury from her cat. Patient states that her cat was running at full speed and ran into her leg causing a wound. Patient has been treating it at home. She was referred by her primary doctor to evaluation and treatment. She denies any constitutional symptoms. No other pedal complaints at this time. Progress of Wound: Self treatment at home stable. [facility] Medical History Heart attack Hypertension Pulmonary embolism Spinal injuries Spinal stenosis Urinary tract infection Home Medications aspirin 81 mg tablet,delayed release (Pedro Low Dose Aspirin) 81 mg PO DAILY HEALTH MAINTENANCE 02/17/22 [History Last Taken 02/16/22] atorvastatin 40 mg tablet 40 mg PO DAILY CHOLESTEROL 02/17/22 [History Last Taken 02/16/22] calcium carbonate 500 mg calcium (1,250 mg) tablet 1,000 mg PO DAILY SUPPLEMENT 02/17/22 [History Last Taken 02/16/22] loratadine 10 mg tablet (Claritin) 10 mg PO DAILY ALLERGIES 02/17/22 [History Last Taken 02/16/22] metoprolol tartrate 50 mg tablet 50 mg PO BID HEART 02/17/22 [History Last Taken 02/16/22] multivit,tx with iron 27 el-colgzfh-dzhdn acid 0.4 mg-minerals tablet 1 tab PO DAILY SUPPLEMENT 02/17/22 [History Last Taken 02/16/22] vitamin B complex 1 cap PO DAILY SUPPLEMENT 02/17/22 [History Last Taken 02/16/22] hydrochlorothiazide 12.5 mg capsule 12.5 mg PO DAILY 08/05/23 [History Last Taken Unknown] vitamin E 100 unit capsule 100 mg PO DAILY 08/05/23 [History Last Taken Unknown] Allergy/AdvReac Type Severity Reaction Status Date / Time iodine Allergy Rash Verified 08/05/23 15:34 morphine Allergy Other Verified 08/05/23 15:34 bacitracin AdvReac Intermediate Rash Verified 08/05/23 15:34 codeine AdvReac Vomiting Verified 08/05/23 15:34 Surgical History H/O heart artery stent History of appendectomy History of hysterectomy History of tonsillectomy Previous back surgery Social History household members: spouse Smoking Status: Former smoker alcohol intake: never substance use type: does not use Vital Signs Vital Signs Vital Signs: 08/10/23 10:22 Temperature 97.7 F L Temperature Source Temporal Pulse Rate 70 Respiratory Rate 16 Blood Pressure 171/73 H Blood Pressure Mean 105 Blood Pressure Source Monitor Blood Pressure Position Sitting Blood Pressure Location Left Arm Oxygen Delivery Method Room Air Weight Weight: 55.338 kg Body Mass Index (BMI) 18.0 Physical Exam Narrative Vascular:DP and PT pulses are faintly palpable. CFT is brisk. Skin temperature gradient is warm to cool from proximal ankle to distal digits bilateral. Periwound erythema which is blanchable. No proximal streaking. Neurological: Light touch and epicritic sensation is intact. Patient response to painful stimuli. Dermatological: Full-thickness ulceration to the medial leg secondary to injury/trauma measuring 2.2 x 1.0 x 0.3 cm. Wound base is fibrogranular in nature. Minimal serous drainage. Sanguinous drainage appreciated after debridement. Blanchable erythema is appreciated periwound. No proximal streaking. No sign of infection. Excision debridement down to including subcutaneous tissue of the full-thickness ulceration of the medial aspect of the leg with number 5 mm dermal curette without incident. Predebridement measurements are 2.0 x 0.9 x 0.1 cm. Postdebridement measurement is 2.2 x 1.1 x 0.3 cm. Muscle skeletal: Muscle strength 5 of 5 in all quadrants bilateral. Mild part of tenderness appreciated full-thickness ulceration to the medial left leg. No pain with calf compression. Debridement Note Debridement Note Debridement Free Text: Excision debridement down to including subcutaneous tissue of the full-thickness ulceration of the medial aspect of the leg with number 5 mm dermal curette without incident. Predebridement measurements are 2.0 x 0.9 x 0.1 cm. Postdebridement measurement is 2.2 x 1.1 x 0.3 cm. Post-Debridement Measurements and Additional Note: Post-Debridement Measurements/Treatment WC - Nurse 1 - General Ulcer Assessment Start: 08/05/23 15:11 Freq: Status: Active Protocol: WC.LOWEXT Activity Type Activity Date Activity User E-sign Co-sign Detail Recorded Client Recorded Date Recorded By Document 08/05/23 15:13 [facility] [id number] 08/05/23 15:28 [facility] Document 08/10/23 10:22 [facility] Desktop 08/10/23 10:26 [facility] 08/05/23 08/10/23 15:13 10:22 - Today's Visit Information Type of service Initial Visit Follow-up Visit (Physician/EXEC. CREATIVE DIRECTOR ) Arrival Mode Ambulatory,Cane Ambulatory Transfer Assistance Stretcher None Accompanied by SISTER IN LOBBY SISTER Patient Identification Verified (Name & Yes Yes ) Patient Requires Transmission-Based No No Precautions Height and Weight Height 5 ft 9 in Weight 55.338 kg Weight in Pounds 122.0 lbs Weight Measurement Method Stated by Patient Body Mass Index (BMI) 18.0 18.0 BMI Classification Underweight Underweight BSA - Mandeep 1.67 Vital Signs Temperature (97.8 F-99.1 F) 97.3 F L 97.7 F L Temperature Source Temporal Temporal Pulse Rate (60-100) 70 70 Pulse Location Monitor Apical Respiratory Rate (12-18) 16 16 Respiratory rate source Observation Observation Oxygen Delivery Method Room Air Room Air Blood Pressure (90/60-120/80) 143/93 H 171/73 H Blood Pressure Mean 109 105 Source Monitor Monitor Position Sitting Sitting Blood Pressure Location Right Arm Left Arm History Since Last Visit- (Skip if this is Patient's initial visit) Have you changed medications since your No last visit? Any new allergies or adverse reactions No Had a fall/change in ADL's that may No increase risk of falls Signs or symptoms of abuse and/or No neglect since last visit Have you been in the hospital since your No last visit? Has dressing in place as prescribed Yes Has compression in place as prescribed Yes Has offloadiing in place as prescribed N/A Experienced any changes in pain level or No management Left Footwear Regular Shoe Regular Shoe Right Footwear Regular Shoe Regular Shoe Pain Scale: 0-10 Numeric Is Patient Pain Free? Yes Yes Lower Extremity Assessment/ Foot Assessment/ Toe Nail Assessment Right -Posterior Tibial Doppler Monophasic -Dorsalis Pedis Doppler Monophasic -Extremity Color Dusky, Hyperpigmented -Hair Growth on Legs No -Hair Growth on Toes No -Temperature of Extremity Cool -Capillary Refill Less than 3 Seconds -Other Deformity No -Prior Foot Ulcer No -Charcot Joint No -Prior Amputation No -Thick Yes -Discolored Yes -Deformed No -Improper Length & Hygeine No Left -Posterior Tibial Doppler Monophasic -Dorsalis Pedis Doppler Monophasic -Extremity Color Dusky, Hyperpigmented -Hair Growth on Legs No -Hair Growth on Toes No -Temperature of Extremity Cool -Capillary Refill Less than 3 Seconds -Other Deformity No -Prior Foot Ulcer No -Charcot Joint No -Prior Amputation No -Thick Yes -Discolored Yes -Deformed No -Improper Length & Hygeine No Neuropathy Assessment Feet - Top Side and Bottom <Entered> (a) Communication Assessment Preferred language Dutch Hepatologist Required No Able to Read Yes Able to Write Yes Communication Tools None Right Hearing Abillity Normal Left Hearing Abillity Normal Visual Assistive Devices Glasses Teaching Assessment Preferences Verbal,Written, Audio/Visual, Demonstration Barriers to Learning None Readiness To Learn Excellent Willingness to Engage in Self Management High Activies Readiness to Engage in Self Management High Activities Anxiety Level Calm Cooperation Cooperative Perception Coherent Interest in Health Problem Asks Questions Education Importance Acknowledges Need Does Patient Smoke tobacco or other No substances Smoking Status Former smoker Is Patient Diabetic No Functional Assessment Recent Decline in Ability to Perform Denies Any Declines 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 Cultural/Restorationism Needs that may affect No Treatment Plan Teaching: Wound Center *Welcome to the Wound Center -Person Taught Patient -Teaching Method Discussion -Response to teaching Verbalize understanding Welcome to the Wound Care Center Dutch (a) 1 - - 2 - - 3 - + 4 - + 5 - + 6 - - WC - Nurse 1 - General Ulcer Measurement Start: 08/05/23 15:11 Freq: Status: Active Protocol: Activity Type Activity Date Activity User E-sign Co-sign Detail Recorded Client Recorded Date Recorded By Document 08/05/23 15:13 [facility] [id number] 08/05/23 15:28 [facility] Document 08/10/23 10:22 [facility] Desktop 08/10/23 10:26 [facility] 08/05/23 08/10/23 15:13 10:22 Wound Center Nurse 1 #1- LLE MEDIAL (TRAUMA) -Combined with other wound No No -Current Size (cm) - Length 2 2.2 -Current Size (cm) - Width 0.9 0.9 -Current Size (cm) - Depth 0.1 0.2 -Total Square Cm 1.8 1.98 -Date of Last Picture (Recall this 08/05/23 08/10/23 field) -Photo Taken Yes Yes -Epithelialization None Present Small 1-33% -Tunneling No No -Undermining/Tunneling No No -Circular Undermining No No -Exudate Amt Small Medium -Exudate Type Serosanguineous Serosanguineous -Wound Margin Distinct, Flat & Intact Outline Attached -Granulation Amt None Present (0 Medium (34-66%) %) -Granulation Quality Red -Slough/Fibrin Yes Yes -Necrosis Amt Large (67-100%) Medium (34-66%) -Necrotic Tissue Type Eschar Adherent Slough -Texture (Jaimie-wound Skin Appearance) Assessed Assessed, Scarring -Moisture (Jaimie-wound Skin Appearance) Assessed Assessed, Maceration -Color (Jaimie-wound Skin Appearance) Assessed, Assessed Ecchymosis -Temperature (Jaimie-wound Skin No Abnormality No Abnormality Appearance) (Pt Warm) (Pt Warm) -Tenderness on Palpation (Jaimie-wound No No Skin Appearance) -Ulcer Cleansing Rinsed/ Rinsed/ Irrigated with Irrigated with Saline Saline -Foul Odor after Cleansing No No -Anesthetic Used 5% Lidocaine 5% Lidocaine Gel Gel Right Calf (cm) 31.3 Right Ankle (cm) 18.4 Left Calf (cm) 33 Point of measurement (cm from the medial 31.7 instep) Left Ankle (cm) 18.8 Point of Measurement (cm from the medial 18.8 instep) WC - Nurse 2 - General Ulcer CM Notes Start: 08/05/23 15:11 Freq: Status: Active Protocol: Activity Type Activity Date Activity User E-sign Co-sign Detail Recorded Client Recorded Date Recorded By Document 08/05/23 15:56 NOHEMI [id number] 08/05/23 15:59 NOHEMI Document 08/10/23 10:38 NOHE[facility] Desktop 08/10/23 10:40 NOHEMI 08/05/23 08/10/23 15:56 10:38 Wound Center Nurse 2 #1- LLE MEDIAL (TRAUMA) -Time 15:58 10:38 -Correct Patient Yes Yes -Correct Side, Site, Position Yes Yes -Correct Procedure Yes Yes -Procedure Performed Yes Yes -Type of Procedure Debridement Debridement -Clinical Debridement Subcutaneous Subcutaneous -Tissue Removed Subcutaneous Subcutaneous -Post Debridement (cm) - Length 2.2 2.3 -Post Debridement (cm) - Width 1.1 1.0 -Post Debridement (cm) - Depth 0.3 0.2 -Total Square (Post) (cm) 2.42 2.30 -Area of Debridement (cm) - Length 2.2 2.3 -Area of Debridement (cm) - Width 1.1 1.0 -Total Square (Area) (cm) 2.42 2.30 -Tunneling No No -Undermining/Tunneling No No -Circular Undermining No No -Wound/Ulcer Outcome Not Healed Not Healed -Ulcer Cleansing Rinsed/ Rinsed/ Irrigated with Irrigated with Saline Saline -Foul Odor after Cleansing No No -Bioengineered Tissue No No -Bleeding Controlled with Pressure Pressure -Treatment Response Procedure Procedure Tolerated Well Tolerated Well -Offloading No No -Debridement - Subq, 1st 20sq cm Yes Yes Pain Scale: 0-10 Numeric Is Patient Pain Free? Yes Yes - Nurse 3 - General Ulcer D/C NN Start: 08/05/23 15:11 Freq: Status: Active Protocol: Activity Type Activity Date Activity User E-sign Co-sign Detail Recorded Client Recorded Date Recorded By Document 08/05/23 16:06 RB [id number] 08/05/23 16:08 RB Document 08/10/23 10:50 DL Desktop 08/10/23 10:51 DL 08/05/23 08/10/23 16:06 10:50 Wound Care Center Nurse 3 #1- LLE MEDIAL (TRAUMA) -Ulcer Cleansing Wound Cleanser -Foul Odor after Cleansing No -Primary Dressing Applied Mepilex Border, Promogran Promogran Carina Matter Carina Matter -Other Dressing betadine -Primary Dressing Covered/Secured with Dry Gauze & Roll Gauze, Secured with Tape -Mepilex Border 1 -Promogran Carina Matter 1 1 Left -Tubular Bandage Single Layer Single Layer -Size of Tubigrip Used Size D Size D -Size D ($) 1 2 Treatment Response Procedure Procedure Tolerated Well Tolerated Well Pain Scale: 0-10 Numeric Is Patient Pain Free? Yes Yes Teaching: Wound Center Dressing Your Wound -Person Taught Patient -Teaching Method Discussion, Demonstration -Response to teaching Verbalize understanding Compression Wraps & Stockings -Person Taught Patient -Teaching Method Discussion, Demonstration WC - Visit Discharge Discharge Condition Stable Stable Ambulatory Status Ambulatory Ambulatory Transportation Private Auto Private Auto Medication Reconcilliation completed & No provided to patient/care provider Clinical Summary of Care Provided Yes Notes: dressing assisted by Sunita Ferrari RN Assessment/Plan Assessment/Plan (1) Laceration of left lower leg without foreign body: CODE(S): S81.812A - Laceration without foreign body, left lower leg, initial encounter QUALIFIERS: Encounter type: subsequent encounter Qualified Code(s): S81.812D - Laceration without foreign body, left lower leg, subsequent encounter PLAN: Patient was examined evaluated. All findings were discussed with the patient. All questions were answered to the patient satisfaction. Excision debridement down to including subcutaneous tissue of the full-thickness ulceration of the medial aspect of the leg with number 5 mm dermal curette without incident. Predebridement measurements are 2.0 x 0.9 x 0.1 cm. Postdebridement measurement is 2.2 x 1.1 x 0.3 cm. Patient's left leg ulceration was dressed with Carina, Betadine paint dry sterile dressing. Patient was instructed to change her dressing daily until follow-up in 1 week. Follow-up in 1 week. (2) Pain in left leg: CODE(S): M79.605 - Pain in left leg (3) Venous insufficiency: CODE(S): I87.2 - Venous insufficiency (chronic) (peripheral) (4) Peripheral vascular disease: CODE(S): I73.9 - Peripheral vascular disease, unspecified
--- NOTE | 2023-08-13 09:25 | VDLE_ITS ---
Reason For Study: venous insufficiency, LLE ulcer RIGHT LEFT CFV is compressible, spontaneous, phasic, CFV is compressible, spontaneous, phasic, competent and demonstrates normal competent, and demonstrates normal augmentation. augmentation. FV is compressible, spontaneous, phasic, FV is compressible, spontaneous, phasic, competent and demonstrates normal competent and demonstrates normal augmentation. augmentation. POP V is compressible, spontaneous, phasic, POP V is compressible, spontaneous, phasic, competent and demonstrates normal competent and demonstrates normal augmentation. augmentation. T/P Trunk is compressible. T/P Trunk is compressible. PTV is compressible. PTV is compressible. RT PerV is compressible. LT PerV is compressible. SFJ is competent and measures .67 cm. SFJ is competent and measures .61 cm. GSV proximal thigh measures .28 x .32 cm. GSV proximal thigh measures .35 x .36 cm. GSV at knee measures .21 x .21 cm. GSV at knee measures .26 x .3 cm. GSV INCOMPETENT throughout for greater than GSV INCOMPETENT throughout for greater than 0.5 seconds. 0.5 seconds. SSV proximal calf is competent and SSV proximal calf is INCOMPETENT for greater measures .1 x .14 cm. than 0.5 seconds and measures .17 x .2 cm. Hypoechoic area behind the knee measuring Hypoechoic area behind the knee measuring 2.33 x .85 cm. Area is nonvascular. 1.42 x 2.66 cm. Area is nonvascular. Procedure This is a venous duplex using B-mode, color flow and spectral Doppler. Exam performed in department. The exam was diagnostic. VL/Venous Duplex US - Alverto Extrem Interpretation Summary Deep veins of the lower extremities are bilaterally patent and compressible seg mentally. There is no evidence of deep vein thrombosis on either side. Valvular competence appears in tact within the proximal deep venous systems bilaterally. The great saphenous veins appear bila terally patent and compressible segmentally. Sapheno-femoral junctions are bilaterally competent . Segmental valvular incompetence is noted within the great saphenous veins bilaterally. The right s mall saphenous vein is patent and competent. The left small saphenous vein is patent and incompeten t. A non-vascular, hypoechoic structure is noted in the popliteal spaces bilaterally, with dimensi ons as documented above. These probably represent popliteal cysts. Clinical correlation is advise d. Ordering Physician: Brody Nickerson Referring Physician: Autumn Richards Performed By: Ryan Ramirez RVT
--- NOTE | 2023-08-13 09:25 | ART_ITS ---
Reason For Study: PVD Procedure A bilateral lower extremity continuous wave Doppler with analog waveform analysis,segmental pressures,and ankle brachial indexes without exercise. Left Segmental Pressures Left brachial= 149mmHg. Left posterior tibial artery = 169mmHg. Left dorsalis pedis artery = 156mmHg. Left digit = 92 mmHg. The left posterior tibial artery waveforms are triphasic. The left dorsalis pedis waveforms are biphasic. Right Segmental Pressures Right brachial= 152mmHg. Right posterior tibial artery = 163mmHg. Right dorsalis pedis artery = 138mmHg. Right digit = 97 mmHg. The right posterior tibial artery waveforms are triphasic. The right dorsalis pedis waveforms are biphasic. Indices The right ankle brachial index by the posterior tibial artery is 1.07. The right ankle brachial index by the dorsalis pedis is .91. The right digital-brachial index is .64. The left ankle brachial index by the posterior tibial artery is 1.11. The left ankle brachial index by the dorsalis pedis is 1.03. The left digital-brachial index is .61. VL/Lower Ext Art Exam w/o Exercis Interpretation Summary Triphasic and biphasic Doppler waveforms are noted at ankle level bilaterally. Pulse-volume recordings appear diminished at digital level bilaterally, but satisfactory at all other levels bilaterally. Resting ankle-brachial indices are normal bilaterally. Digital-bra chial indices are mildly diminished bilaterally. Arterial flow appears to be normal at ankle level bilaterally. There is evidenc e of mild arterial occlusive disease at digital level bilaterally. Ordering Physician: Brody Nickerson Performed By: Ryan Ramirez RVT
[2023-08-19 15:07] VITALS: BP 137/67; PULSE 76; RESP 16; TEMP 36.7; BMI 18.0
--- NOTE | 2023-08-19 17:34 | PCM.WC.PN ---
History of Present Illness Date of Service: 08/19/23 Chief Complaint: Full-thickness wound to the left leg secondary to cat injury. History of Wound: Mrs. Duarte is an 78-year-old female seen at wound care clinic today at [facility] secondary to injury from her cat. Patient states that her cat was running at full speed and ran into her leg causing a wound. Patient has been treating it at home. She was referred by her primary doctor to evaluation and treatment. She denies any constitutional symptoms. No other pedal complaints at this time. Progress of Wound: Self treatment at home stable. Subjective Subjective Mrs. Duarte is an 78-year-old female with a full-thickness ulceration to the left leg secondary to injury. Patient also presents today for review of her pulse volume recordings and venous studies that she had approximately 1 week ago. She is anticipating her results. She has been changing her dressing at home as instructed. She denies any new onset of trauma except stated above. She denies trauma. Denies constitutional symptoms. No other pedal complaints at this time. Objective Data Objective Data Vital Signs: Vital Signs Temp Pulse Resp BP O2 Del Method 98.1 F 76 16 137/67 H Room Air 08/19/23 15:07 08/19/23 15:07 08/19/23 15:07 08/19/23 15:07 08/19/23 15:07 Oxygen Delivery Method Room Air Weight: 55.338 kg Body Mass Index (BMI) 18.0 Physical Exam Narrative Neurovascular status unchanged. Evidence of full-thickness ulceration to the left medial leg measuring 1.8 x 0.7 x 0.2 cm. Base is 100% granular with no sign of infection. No pain with calf compression. Excisional debridement down to including subcutaneous tissue with number 5 mm dermal curette to the full-thickness ulceration on the left leg.. Right measurements are 1.1 x 0.5 x 0.1 cm. Postdebridement measurements 1.8 x 0.7 x 0.2 cm. Debridement Note Debridement Note Post-Debridement Measurements and Additional Note: Post-Debridement Measurements/Treatment WC - Nurse 1 - General Ulcer Assessment Start: 08/05/23 15:11 Freq: Status: Active Protocol: ATA.LOWEXT Activity Type Activity Date Activity User E-sign Co-sign Detail Recorded Client Recorded Date Recorded By Document 08/05/23 15:13 [facility] [id number] 08/05/23 15:28 BM Document 08/10/23 10:22 BM Desktop 08/10/23 10:26 BM Document 08/19/23 15:07 [facility] Desktop 08/19/23 15:13 BM 08/05/23 08/10/23 08/19/23 15:13 10:22 15:07 WC - Today's Visit Information Type of service Initial Visit Follow-up Visit Follow-up Visit (Physician/HOST AND HOSTESS (Physician/HOST AND HOSTESS ) ) Arrival Mode Ambulatory,Cane Ambulatory Ambulatory Transfer Assistance Stretcher None None Accompanied by SISTER IN LOBBY SISTER SISTER Patient Identification Verified (Name & Yes Yes Yes ) Patient Requires Transmission-Based No No No Precautions Height and Weight Height 5 ft 9 in Weight 55.338 kg Weight in Pounds 122.0 lbs Weight Measurement Method Stated by Patient Body Mass Index (BMI) 18.0 18.0 18.0 BMI Classification Underweight Underweight Underweight BSA - Mandeep 1.67 Vital Signs Temperature (97.8 F-99.1 F) 97.3 F L 97.7 F L 98.1 F Temperature Source Temporal Temporal Temporal Pulse Rate (60-100) 70 70 76 Pulse Location Monitor Apical Monitor Respiratory Rate (12-18) 16 16 16 Respiratory rate source Observation Observation Observation Oxygen Delivery Method Room Air Room Air Room Air Blood Pressure (90/60-120/80) 143/93 H 171/73 H 137/67 H Blood Pressure Mean (mm Hg) 109 105 90 Source Monitor Monitor Monitor Position Sitting Sitting Sitting Blood Pressure Location Right Arm Left Arm Left Arm History Since Last Visit- (Skip if this is Patient's initial visit) Have you changed medications since your No No last visit? Any new allergies or adverse reactions No No Had a fall/change in ADL's that may No No increase risk of falls Signs or symptoms of abuse and/or No No neglect since last visit Have you been in the hospital since your No No last visit? Has dressing in place as prescribed Yes Yes Has compression in place as prescribed Yes Yes Has offloadiing in place as prescribed N/A N/A Experienced any changes in pain level or No No management Left Footwear Regular Shoe Regular Shoe Regular Shoe Right Footwear Regular Shoe Regular Shoe Regular Shoe Pain Scale: 0-10 Numeric Is Patient Pain Free? Yes Yes Yes Lower Extremity Assessment/ Foot Assessment/ Toe Nail Assessment Right -Posterior Tibial Doppler Monophasic -Dorsalis Pedis Doppler Monophasic -Extremity Color Dusky, Hyperpigmented -Hair Growth on Legs No -Hair Growth on Toes No -Temperature of Extremity Cool -Capillary Refill Less than 3 Seconds -Other Deformity No -Prior Foot Ulcer No -Charcot Joint No -Prior Amputation No -Thick Yes -Discolored Yes -Deformed No -Improper Length & Hygeine No Left -Posterior Tibial Doppler Monophasic -Dorsalis Pedis Doppler Monophasic -Extremity Color Dusky, Hyperpigmented -Hair Growth on Legs No -Hair Growth on Toes No -Temperature of Extremity Cool -Capillary Refill Less than 3 Seconds -Other Deformity No -Prior Foot Ulcer No -Charcot Joint No -Prior Amputation No -Thick Yes -Discolored Yes -Deformed No -Improper Length & Hygeine No Neuropathy Assessment Feet - Top Side and Bottom <Entered> (a) Communication Assessment Preferred language [place] [employer] Required No Able to Read Yes Able to Write Yes Communication Tools None Right Hearing Abillity Normal Left Hearing Abillity Normal Visual Assistive Devices Glasses Teaching Assessment Preferences Verbal,Written, Audio/Visual, Demonstration Barriers to Learning None Readiness To Learn Excellent Willingness to Engage in Self Management High Activies Readiness to Engage in Self Management High Activities Anxiety Level Calm Cooperation Cooperative Perception Coherent Interest in Health Problem Asks Questions Education Importance Acknowledges Need Does Patient Smoke tobacco or other No substances Smoking Status Former smoker Is Patient Diabetic No Functional Assessment Recent Decline in Ability to Perform Denies Any Declines 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 Cultural/Sikhism Needs that may affect No Treatment Plan Teaching: Wound Center *Welcome to the Wound Center -Person Taught Patient -Teaching Method Discussion -Response to teaching Verbalize understanding Welcome to the Wound Care Center [place] (a) 1 - - 2 - - 3 - + 4 - + 5 - + 6 - - WC - Nurse 1 - General Ulcer Measurement Start: 08/05/23 15:11 Freq: Status: Active Protocol: Activity Type Activity Date Activity User E-sign Co-sign Detail Recorded Client Recorded Date Recorded By Document 08/05/23 15:13 [facility] [id number] 08/05/23 15:28 [facility] Document 08/10/23 10:22 [facility] Desktop 09/18/23 10:26 BMF Document 08/19/23 15:07 BMF Desktop 08/19/23 15:13 BMF Edit Result 08/19/23 15:07 BMF (1) Desktop 08/19/23 15:14 BMF (1) #1- LLE MEDIAL (TRAUMA) - Current Size (cm) - Depth 0.5 => 0.2 08/05/23 08/10/23 08/19/23 15:13 10:22 15:07 Wound Center Nurse 1 #1- LLE MEDIAL (TRAUMA) -Combined with other wound No No No -Current Size (cm) - Length 2 2.2 1.1 -Current Size (cm) - Width 0.9 0.9 0.5 -Current Size (cm) - Depth 0.1 0.2 0.2 -Total Square Cm 1.8 1.98 0.55 -Date of Last Picture (Recall this 08/05/23 08/10/23 field) -Photo Taken Yes Yes No -Epithelialization None Present Small 1-33% Small 1-33% -Tunneling No No No -Undermining/Tunneling No No No -Circular Undermining No No No -Exudate Amt Small Medium Medium -Exudate Type Serosanguineous Serosanguineous Serosanguineous -Wound Margin Distinct, Flat & Intact Distinct, Outline Outline Attached Attached -Granulation Amt None Present (0 Medium (34-66%) Large (67-100%) %) -Granulation Quality Red Red -Slough/Fibrin Yes Yes Yes -Necrosis Amt Large (67-100%) Medium (34-66%) Small (1-33%) -Necrotic Tissue Type Eschar Adherent Slough Adherent Slough -Texture (Jaimie-wound Skin Appearance) Assessed Assessed, Assessed, Scarring Scarring -Moisture (Jaimie-wound Skin Appearance) Assessed Assessed, Assessed,Dry/ Maceration Scaly -Color (Jaimie-wound Skin Appearance) Assessed, Assessed Assessed Ecchymosis -Temperature (Jaimie-wound Skin No Abnormality No Abnormality No Abnormality Appearance) (Pt Warm) (Pt Warm) (Pt Warm) -Tenderness on Palpation (Jaimie-wound No No No Skin Appearance) -Ulcer Cleansing Rinsed/ Rinsed/ Rinsed/ Irrigated with Irrigated with Irrigated with Saline Saline Saline -Foul Odor after Cleansing No No No -Anesthetic Used 5% Lidocaine 5% Lidocaine 5% Lidocaine Gel Gel Gel Lower Limb Edema Present Yes Right Calf (cm) 31.3 Right Ankle (cm) 18.4 Left Calf (cm) 33 32.8 Point of measurement (cm from the medial 31.7 instep) Left Ankle (cm) 18.8 19.8 Point of Measurement (cm from the medial 18.8 instep) WC - Nurse 2 - General Ulcer CM Notes Start: 08/05/23 15:11 Freq: Status: Active Protocol: Activity Type Activity Date Activity User E-sign Co-sign Detail Recorded Client Recorded Date Recorded By Document 08/05/23 15:56 [id number] 08/05/23 15:59 Document 08/10/23 10:38 Desktop 08/10/23 10:40 Document 08/19/23 15:37 Desktop 08/19/23 15:42 08/05/23 08/10/23 08/19/23 15:56 10:38 15:37 Wound Center Nurse 2 #1- LLE MEDIAL (TRAUMA) -Time 15:58 10:38 15:38 -Correct Patient Yes Yes Yes -Correct Side, Site, Position Yes Yes Yes -Correct Procedure Yes Yes Yes -Procedure Performed Yes Yes Yes -Type of Procedure Debridement Debridement Debridement -Clinical Debridement Subcutaneous Subcutaneous Subcutaneous -Tissue Removed Subcutaneous Subcutaneous Subcutaneous -Post Debridement (cm) - Length 2.2 2.3 1.8 -Post Debridement (cm) - Width 1.1 1.0 0.7 -Post Debridement (cm) - Depth 0.3 0.2 0.2 -Total Square (Post) (cm) 2.42 2.30 1.26 -Area of Debridement (cm) - Length 2.2 2.3 1.8 -Area of Debridement (cm) - Width 1.1 1.0 0.7 -Total Square (Area) (cm) 2.42 2.30 1.26 -Tunneling No No No -Undermining/Tunneling No No No -Circular Undermining No No No -Wound/Ulcer Outcome Not Healed Not Healed Not Healed -Ulcer Cleansing Rinsed/ Rinsed/ Rinsed/ Irrigated with Irrigated with Irrigated with Saline Saline Saline -Foul Odor after Cleansing No No No -Bioengineered Tissue No No No -Bleeding Controlled with Pressure Pressure Pressure -Treatment Response Procedure Procedure Procedure Tolerated Well Tolerated Well Tolerated Well -Offloading No No No -Debridement - Subq, 1st 20sq cm Yes Yes Yes Pain Scale: 0-10 Numeric Is Patient Pain Free? Yes Yes Yes WC - Nurse 3 - General Ulcer D/C NN Start: 08/05/23 15:11 Freq: Status: Active Protocol: Activity Type Activity Date Activity User E-sign Co-sign Detail Recorded Client Recorded Date Recorded By Document 08/05/23 16:06 RB [id number] 08/05/23 16:08 RB Document 08/10/23 10:50 DL Desktop 08/10/23 10:51 DL Document 08/19/23 15:54 KW Desktop 08/19/23 15:54 KW 08/05/23 08/10/23 08/19/23 16:06 10:50 15:54 Wound Care Center Nurse 3 #1- LLE MEDIAL (TRAUMA) -Ulcer Cleansing Wound Cleanser Rinsed/ Irrigated with Saline -Foul Odor after Cleansing No -Primary Dressing Applied Mepilex Border, Promogran Mepilex Border, Promogran Carina Matter Promogran Carina Matter Carina Matter -Other Dressing betadine -Primary Dressing Covered/Secured with Dry Gauze & Roll Gauze, Secured with Tape -Mepilex Border 1 1 -Promogran Carina Matter 1 1 1 Left -Tubular Bandage Single Layer Single Layer Double Layer -Size of Tubigrip Used Size D Size D Size D -Size D ($) 1 2 2 Treatment Response Procedure Procedure Tolerated Well Tolerated Well Pain Scale: 0-10 Numeric Is Patient Pain Free? Yes Yes Yes Teaching: Wound Center Dressing Your Wound -Person Taught Patient -Teaching Method Discussion, Demonstration -Response to teaching Verbalize understanding Compression Wraps & Stockings -Person Taught Patient -Teaching Method Discussion, Demonstration WC - Visit Discharge Discharge Condition Stable Stable Stable Ambulatory Status Ambulatory Ambulatory Ambulatory,Cane Transportation Private Auto Private Auto Private Auto Medication Reconcilliation completed & No No provided to patient/care provider Clinical Summary of Care Provided Yes Yes Notes: dressing assisted by Sunita Ferrari RN Assessment/Plan Assessment/Plan (1) Laceration of left lower leg without foreign body: CODE(S): S81.812A - Laceration without foreign body, left lower leg, initial encounter QUALIFIERS: Encounter type: subsequent encounter Qualified Code(s): S81.812D - Laceration without foreign body, left lower leg, subsequent encounter PLAN: Patient was examined evaluated. All findings were discussed with the patient. All questions were answered to the patient satisfaction. Excisional debridement down to including subcutaneous tissue with number 5 mm dermal curette to the full-thickness ulceration on the left leg.. Right measurements are 1.1 x 0.5 x 0.1 cm. Postdebridement measurements 1.8 x 0.7 x 0.2 cm. Ulceration was dressed with Carina, Betadine paint dry sterile bandage. Patient was instructed to continue to change her dressing every 1 to 2 days until follow-up in 1 week. She left the office pleased to visit. (2) Venous insufficiency: CODE(S): I87.2 - Venous insufficiency (chronic) (peripheral) PLAN: Venous reflux studies as well as PVRs were reviewed with the patient with all questions answered her satisfaction. There shows evidence of venous insufficiency to bilateral lower extremity. In regards to PAD patient shows to have normal ABIs as documented. (3) Pain in left leg: CODE(S): M79.605 - Pain in left leg
== END 2023-08-22 23:59 | disposition home or self-care (01) ==
LOC: WC 15:00
PROVIDERS: PCP Registered Nurse; Referring Provider Registered Nurse; Visit Provider Podiatrist Foot & Ankle Surgery
DX: S81.812D Laceration without foreign body, left lower leg, subsequent encounter (principal); I73.9 Peripheral vascular disease, unspecified; I10 Essential (primary) hypertension; G62.9 Polyneuropathy, unspecified; Z87.891 Personal history of nicotine dependence; Z79.82 Long term (current) use of aspirin; I87.2 Venous insufficiency (chronic) (peripheral); M79.605 Pain in left leg; I25.2 Old myocardial infarction; Z86.711 Personal history of pulmonary embolism
CPT/HCPCS: 11042; 93923; 93970; 99214; G0463

== ENCOUNTER 2023-09-09 13:45 | Outpatient (RCR) | payer MEDICARE, SELFPAY ==
[2023-08-23 00:46] VITALS: BP 137/67; PULSE 76; RESP 16; TEMP 36.7; BMI 18.0
[2023-08-26 14:01] VITALS: BP 172/80; PULSE 72; TEMP 36.1; BMI 18.0
--- NOTE | 2023-08-26 14:58 | PN.PCM_ITS ---
History of Present Illness Date of Service: 08/26/23 Chief Complaint: Full-thickness wound to the left leg secondary to cat injury. History of Wound: Mrs. Duarte is an 78-year-old female seen at wound care clinic today at [facility] secondary to injury from her cat. Patient states that her cat was running at full speed and ran into her leg causing a wound. Patient has been treating it at home. She was referred by her primary doctor to evaluation and treatment. She denies any constitutional symptoms. No other pedal complaints at this time. Subjective Subjective Mrs. Duarte is an 6-year-old female presenting to the clinic today for follow- up of full-thickness ulceration to left leg. Patient has been following her dressing changes and states that she can notice great healing to her ulceration after traumatic injury. She denies any strikethrough to her dressings. She denies trauma. Denies constitutional symptoms. No other pedal complaints at this time. Objective Data Objective Data Vital Signs: Vital Signs Temp Pulse Resp BP O2 Del Method 97.0 F L 72 16 172/80 H Room Air 08/26/23 14:01 08/26/23 14:01 08/23/23 00:46 08/26/23 14:01 08/26/23 14:01 Oxygen Delivery Method Room Air Weight: 55.338 kg Body Mass Index (BMI) 18.0 Physical Exam Narrative Neurovascular status unchanged. Evidence of full-thickness ulceration to the left medial leg measuring 1.7 x 0.6 x 0.2 cm. Base is 100% granular with no sign of infection. No pain with calf compression. Excisional debridement down to including subcutaneous tissue with number 5 mm dermal curette to the full-thickness ulceration on the left leg. Right measurements are 1.5 x 0.5 x 0.1 cm. Postdebridement measurements 1.7 x 0.6 x 0.2 cm. Debridement Note Debridement Note Debridement Free Text: Excisional debridement down to including subcutaneous tissue with number 5 mm dermal curette to the full-thickness ulceration on the left leg. Right measurements are 1.5 x 0.5 x 0.1 cm. Postdebridement measurements 1.7 x 0.6 x 0.2 cm. Post-Debridement Measurements and Additional Note: Post-Debridement Measurements/Treatment WC - Nurse 1 - General Ulcer Assessment Start: 08/26/23 13:58 Freq: Status: Active Protocol: ATA.LOWEXT Activity Type Activity Date Activity User E-sign Co-sign Detail Recorded Client Recorded Date Recorded By Document 08/26/23 14:01 Desktop 08/26/23 14:06 08/26/23 14:01 - Today's Visit Information Type of service Follow-up Visit (Physician/PAYROLL AND BENEFITS ASSISTANT ) Arrival Mode Ambulatory,Cane Transfer Assistance None Accompanied by Daughter Patient Identification Verified (Name & Yes ) Patient Requires Transmission-Based No Precautions Height and Weight Body Mass Index (BMI) 18.0 BMI Classification Underweight Vital Signs Temperature (97.8 F-99.1 F) 97.0 F L Temperature Source Temporal Pulse Rate (60-100) 72 Pulse Location Monitor Oxygen Delivery Method Room Air Blood Pressure (90/60-120/80) 172/80 H Blood Pressure Mean (mm Hg) 110 Source Monitor Position Sitting Blood Pressure Location Left Arm History Since Last Visit- (Skip if this is Patient's initial visit) Have you changed medications since your No last visit? Any new allergies or adverse reactions No Had a fall/change in ADL's that may No increase risk of falls Signs or symptoms of abuse and/or No neglect since last visit Have you been in the hospital since your No last visit? Has dressing in place as prescribed Yes Has compression in place as prescribed Yes Has offloadiing in place as prescribed N/A Experienced any changes in pain level or No management Left Footwear Regular Shoe Pain Scale: 0-10 Numeric Is Patient Pain Free? Yes - Nurse 1 - General Ulcer Measurement Start: 08/26/23 13:58 Freq: Status: Active Protocol: Activity Type Activity Date Activity User E-sign Co-sign Detail Recorded Client Recorded Date Recorded By Document 08/26/23 14:01 Desktop 08/26/23 14:06 08/26/23 14:01 Wound Center Nurse 1 #1- LLE MEDIAL (TRAUMA) -Current Size (cm) - Length 1.5 -Current Size (cm) - Width 0.6 -Current Size (cm) - Depth 0.1 -Total Square Cm 0.90 -Date of Last Picture (Recall this 08/26/23 field) -Photo Taken Yes -Epithelialization Medium 34-66% -Tunneling No -Undermining/Tunneling No -Circular Undermining No -Exudate Amt Medium -Exudate Type Serous -Wound Margin Distinct, Outline Attached -Granulation Amt Large (67-100%) -Granulation Quality Red -Slough/Fibrin Yes -Necrosis Amt Small (1-33%) -Necrotic Tissue Type Adherent Slough -Structure Exposed N/A -Texture (Jaimie-wound Skin Appearance) Assessed, Scarring -Moisture (Jaimie-wound Skin Appearance) Assessed -Color (Jaimie-wound Skin Appearance) Assessed -Temperature (Jaimie-wound Skin No Abnormality Appearance) (Pt Warm) -Tenderness on Palpation (Jaimie-wound No Skin Appearance) -Ulcer Cleansing Rinsed/ Irrigated with Saline -Foul Odor after Cleansing No -Anesthetic Used 5% Lidocaine Gel Lower Limb Edema Present No Left Calf (cm) 32.7 Left Ankle (cm) 20.0 WC - Nurse 2 - General Ulcer CM Notes Start: 08/26/23 13:58 Freq: Status: Active Protocol: Activity Type Activity Date Activity User E-sign Co-sign Detail Recorded Client Recorded Date Recorded By Document 08/26/23 14:13 Laptop 08/26/23 14:16 08/26/23 14:13 Wound Center Nurse 2 #1- LLE MEDIAL (TRAUMA) -Time 14:14 -Correct Patient Yes -Correct Side, Site, Position Yes -Correct Procedure Yes -Procedure Performed Yes -Type of Procedure Debridement -Clinical Debridement Subcutaneous -Tissue Removed Subcutaneous -Post Debridement (cm) - Length 1.7 -Post Debridement (cm) - Width 0.6 -Post Debridement (cm) - Depth 0.2 -Total Square (Post) (cm) 1.02 -Area of Debridement (cm) - Length 1.7 -Area of Debridement (cm) - Width 0.6 -Total Square (Area) (cm) 1.02 -Tunneling No -Undermining/Tunneling No -Circular Undermining No -Wound/Ulcer Outcome Not Healed -Ulcer Cleansing Rinsed/ Irrigated with Saline -Foul Odor after Cleansing No -Bioengineered Tissue No -Bleeding Controlled with Pressure -Treatment Response Procedure Tolerated Well -Offloading No -Debridement - Subq, 1st 20sq cm Yes Pain Scale: 0-10 Numeric Is Patient Pain Free? Yes ATA - Nurse 3 - General Ulcer D/C NN Start: 08/26/23 13:58 Freq: Status: Active Protocol: Activity Type Activity Date Activity User E-sign Co-sign Detail Recorded Client Recorded Date Recorded By Document 08/26/23 14:22 DL Desktop 08/26/23 14:23 DL Edit Result 08/26/23 14:22 DL (1) Desktop 08/26/23 14:26 DL (1) #1- LLE MEDIAL (TRAUMA) - Other Covering mepilex border => tubigrip 08/26/23 14:22 Wound Care Center Nurse 3 #1- LLE MEDIAL (TRAUMA) -Ulcer Cleansing Not Cleansed -Foul Odor after Cleansing No -Negative Pressure Wound Therapy N/A -Primary Dressing Applied Mepilex Border, Promogran Carina Matter -Other Dressing betadine -Other Covering tubigrip -Mepilex Border 1 -Promogran Carina Matter 1 Pain Scale: 0-10 Numeric Is Patient Pain Free? Yes WC - Visit Discharge Discharge Condition Stable Ambulatory Status Ambulatory Transportation Private Auto Accompanied by sister Assessment/Plan Assessment/Plan (1) Laceration of left lower leg without foreign body: CODE(S): S81.812A - Laceration without foreign body, left lower leg, initial encounter QUALIFIERS: Encounter type: subsequent encounter Qualified Code(s): S81.812D - Laceration without foreign body, left lower leg, subsequent encounter PLAN: Patient was then valid. All findings were discussed with the patient. All questions were answered to the patient satisfaction. Excisional debridement down to including subcutaneous tissue with number 5 mm dermal curette to the full-thickness ulceration on the left leg. Right measurements are 1.5 x 0.5 x 0.1 cm. Postdebridement measurements 1.7 x 0.6 x 0.2 cm. Sanguinous drainage noted after debridement. The wound was dressed with Carina, Betadine paint and sterile dressing. Patient will continue dressing changes as instructed every other day and is okay to wash and dry the ulceration. She will follow-up in 2 weeks. (2) Pain in left leg: CODE(S): M79.605 - Pain in left leg
[2023-09-09 13:53] VITALS: BP 144/71; PULSE 74; RESP 18; TEMP 37.1; BMI 18.0
--- NOTE | 2023-09-09 16:32 | PN.PCM_ITS ---
History of Present Illness Date of Service: 09/09/23 Chief Complaint: Full-thickness wound to the left leg secondary to cat injury. History of Wound: Mrs. Duarte is an 78-year-old female seen at wound care clinic today at [facility] secondary to injury from her cat. Patient states that her cat was running at full speed and ran into her leg causing a wound. Patient has been treating it at home. She was referred by her primary doctor to evaluation and treatment. She denies any constitutional symptoms. No other pedal complaints at this time. Subjective Subjective Mrs. Duarte is an 6-year-old female presenting to the clinic today for follow- up of full-thickness ulceration to left leg. Patient has been following her dressing changes and states that she can notice great healing to her ulceration after traumatic injury. She denies any strikethrough to her dressings. She denies trauma. Denies constitutional symptoms. No other pedal complaints at this time. Objective Data Objective Data Vital Signs: Vital Signs Temp Pulse Resp BP O2 Del Method 98.7 F 74 18 144/71 H Room Air 09/09/23 13:53 09/09/23 13:53 09/09/23 13:53 09/09/23 13:53 09/09/23 13:53 Oxygen Delivery Method Room Air Weight: 55.338 kg Body Mass Index (BMI) 18.0 Physical Exam Narrative Neurovascular status unchanged. Evidence of full-thickness ulceration to the left medial leg measuring 0.7 x 0.5 x 0.1 cm. Base is 100% granular with no sign of infection. No pain with calf compression. Excisional debridement down to including subcutaneous tissue with number 5 mm dermal curette to the full-thickness ulceration on the left leg. Right measurements are 0.5 x 0.4 x 0.1 cm. Postdebridement measurements 0.7 x 0.5 x 0.1 cm. Debridement Note Debridement Note Debridement Free Text: Excisional debridement down to including subcutaneous tissue with number 5 mm dermal curette to the full-thickness ulceration on the left leg. Right measurements are 0.5 x 0.4 x 0.1 cm. Postdebridement measurements 0.7 x 0.5 x 0.1 cm. Post-Debridement Measurements and Additional Note: Post-Debridement Measurements/Treatment WC - Nurse 1 - General Ulcer Assessment Start: 08/26/23 13:58 Freq: Status: Active Protocol: DWAYNE Activity Type Activity Date Activity User E-sign Co-sign Detail Recorded Client Recorded Date Recorded By Document 08/26/23 14:01 Desktop 08/26/23 14:06 Document 09/09/23 13:53 KW Desktop 09/09/23 14:03 KW 08/26/23 09/09/23 14:01 13:53 - Today's Visit Information Type of service Follow-up Visit Follow-up Visit (Physician/NETBACKUP ADMINISTRATOR (Physician/NETBACKUP ADMINISTRATOR ) ) Arrival Mode Ambulatory,Cane Ambulatory,Cane Transfer Assistance None Accompanied by Daughter Savannah- sister Patient Identification Verified (Name & Yes Yes ) Patient Requires Transmission-Based No Precautions Height and Weight Body Mass Index (BMI) 18.0 18.0 BMI Classification Underweight Underweight Vital Signs Temperature (97.8 F-99.1 F) 97.0 F L 98.7 F Temperature Source Temporal Temporal Pulse Rate (60-100) 72 74 Pulse Location Monitor Monitor Respiratory Rate (12-18) 18 Respiratory rate source Observation Oxygen Delivery Method Room Air Room Air Blood Pressure (90/60-120/80) 172/80 H 144/71 H Blood Pressure Mean (mm Hg) 110 95 Source Monitor Monitor Position Sitting Semi-Fowlers Blood Pressure Location Left Arm Left Arm History Since Last Visit- (Skip if this is Patient's initial visit) Have you changed medications since your No No last visit? Any new allergies or adverse reactions No No Had a fall/change in ADL's that may No No increase risk of falls Signs or symptoms of abuse and/or No No neglect since last visit Have you been in the hospital since your No No last visit? Has dressing in place as prescribed Yes Yes Has compression in place as prescribed Yes Yes Has offloadiing in place as prescribed N/A No Experienced any changes in pain level or No No management Left Footwear Regular Shoe Regular Shoe Right Footwear Regular Shoe Pain Scale: 0-10 Numeric Is Patient Pain Free? Yes Yes - Nurse 1 - General Ulcer Measurement Start: 08/26/23 13:58 Freq: Status: Active Protocol: Activity Type Activity Date Activity User E-sign Co-sign Detail Recorded Client Recorded Date Recorded By Document 08/26/23 14:01 Desktop 08/26/23 14:06 GM Document 09/09/23 13:53 KW Desktop 09/09/23 14:03 KW 08/26/23 09/09/23 14:01 13:53 Wound Center Nurse 1 #1- LLE MEDIAL (TRAUMA) -Current Size (cm) - Length 1.5 2.0 -Current Size (cm) - Width 0.6 0.6 -Current Size (cm) - Depth 0.1 0.1 -Total Square Cm 0.90 1.20 -Date of Last Picture (Recall this 08/26/23 field) -Photo Taken Yes -Epithelialization Medium 34-66% -Tunneling No -Undermining/Tunneling No -Circular Undermining No -Exudate Amt Medium Small -Exudate Type Serous Serosanguineous -Wound Margin Distinct, Distinct, Outline Outline Attached Attached -Granulation Amt Large (67-100%) -Granulation Quality Red -Slough/Fibrin Yes -Necrosis Amt Small (1-33%) -Necrotic Tissue Type Adherent Slough -Structure Exposed N/A -Texture (Jaimie-wound Skin Appearance) Assessed, Assessed Scarring -Moisture (Jaimie-wound Skin Appearance) Assessed Assessed -Color (Jaimie-wound Skin Appearance) Assessed Assessed, Erythema -Temperature (Jaimie-wound Skin No Abnormality No Abnormality Appearance) (Pt Warm) (Pt Warm) -Tenderness on Palpation (Jaimie-wound No Skin Appearance) -Ulcer Cleansing Rinsed/ Rinsed/ Irrigated with Irrigated with Saline Saline -Foul Odor after Cleansing No -Anesthetic Used 5% Lidocaine 5% Lidocaine Gel Gel -Wound Comment(s) scabbed Lower Limb Edema Present No Left Calf (cm) 32.7 31.5 Left Ankle (cm) 20.0 19.5 WC - Nurse 2 - General Ulcer CM Notes Start: 08/26/23 13:58 Freq: Status: Active Protocol: Activity Type Activity Date Activity User E-sign Co-sign Detail Recorded Client Recorded Date Recorded By Document 08/26/23 14:13 Laptop 08/26/23 14:16 Document 09/09/23 14:27 Laptop 09/09/23 14:28 08/26/23 09/09/23 14:13 14:27 Wound Center Nurse 2 #1- LLE MEDIAL (TRAUMA) -Time 14:14 14:27 -Correct Patient Yes Yes -Correct Side, Site, Position Yes Yes -Correct Procedure Yes Yes -Procedure Performed Yes Yes -Type of Procedure Debridement Debridement -Clinical Debridement Subcutaneous Subcutaneous -Tissue Removed Subcutaneous Subcutaneous -Post Debridement (cm) - Length 1.7 0.7 -Post Debridement (cm) - Width 0.6 0.5 -Post Debridement (cm) - Depth 0.2 0.1 -Total Square (Post) (cm) 1.02 0.35 -Area of Debridement (cm) - Length 1.7 0.7 -Area of Debridement (cm) - Width 0.6 0.5 -Total Square (Area) (cm) 1.02 0.35 -Tunneling No No -Undermining/Tunneling No No -Circular Undermining No No -Wound/Ulcer Outcome Not Healed Not Healed -Ulcer Cleansing Rinsed/ Rinsed/ Irrigated with Irrigated with Saline Saline -Foul Odor after Cleansing No No -Bioengineered Tissue No No -Bleeding Controlled with Pressure Pressure -Treatment Response Procedure Procedure Tolerated Well Tolerated Well -Offloading No No -Debridement - Subq, 1st 20sq cm Yes Yes Pain Scale: 0-10 Numeric Is Patient Pain Free? Yes Yes WC - Nurse 3 - General Ulcer D/C NN Start: 08/26/23 13:58 Freq: Status: Active Protocol: Activity Type Activity Date Activity User E-sign Co-sign Detail Recorded Client Recorded Date Recorded By Document 08/26/23 14:22 DL Desktop 08/26/23 14:23 DL Edit Result 08/26/23 14:22 DL (1) Desktop 08/26/23 14:26 DL Document 09/09/23 14:34 GM Desktop 09/09/23 14:35 GM (1) #1- LLE MEDIAL (TRAUMA) - Other Covering mepilex border => tubigrip 08/26/23 09/09/23 14:22 14:34 Wound Care Center Nurse 3 #1- LLE MEDIAL (TRAUMA) -Ulcer Cleansing Not Cleansed Rinsed/ Irrigated with Saline -Foul Odor after Cleansing No No -Negative Pressure Wound Therapy N/A -Primary Dressing Applied Mepilex Border, Mepilex Border Promogran Lj Matter -Other Dressing betadine betadine to jaimie wound; lj -Other Covering tubigrip -Mepilex Border 1 1 -Promogran Lj Matter 1 1 Left -Tubular Bandage Double Layer -Size of Tubigrip Used Size D -Size D ($) 1 Treatment Response Procedure Tolerated Well Pain Scale: 0-10 Numeric Is Patient Pain Free? 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 All findings were discussed with the patient. All questions were answered to the patient satisfaction. Excisional debridement down to including subcutaneous tissue with number 5 mm dermal curette to the full-thickness ulceration on the left leg. Right measurements are 0.5 x 0.4 x 0.1 cm. Postdebridement measurements 0.7 x 0.5 x 0.1 cm. Lj was applied as well as a Band-Aid. Tubigrip donned. Patient to follow-up in 2 weeks. Home dressing changes as above. (2) Laceration of left lower leg without foreign body: CODE(S): S81.812A - Laceration without foreign body, left lower leg, initial encounter QUALIFIERS: Encounter type: subsequent encounter Qualified Code(s): S81.812D - Laceration without foreign body, left lower leg, subsequent encounter (3) Pain in left leg: CODE(S): M79.605 - Pain in left leg (4) Venous insufficiency: CODE(S): I87.2 - Venous insufficiency (chronic) (peripheral)
== END 2023-09-22 23:59 | disposition home or self-care (01) ==
LOC: WC 13:45
PROVIDERS: PCP Registered Nurse; Referring Provider Registered Nurse; Visit Provider Podiatrist Foot & Ankle Surgery
DX: L97.922 Non-pressure chronic ulcer of unspecified part of left lower leg with fat layer exposed (principal); S81.812A Laceration without foreign body, left lower leg, initial encounter; M79.605 Pain in left leg; I87.2 Venous insufficiency (chronic) (peripheral)
CPT/HCPCS: 11042

== ENCOUNTER 2023-09-23 13:47 | Outpatient (RCR) | payer MEDICARE, SELFPAY ==
[2023-09-23 00:23] VITALS: BP 144/71; PULSE 74; RESP 18; TEMP 37.1; BMI 18.0
[2023-09-23 13:57] VITALS: BP 151/110; PULSE 95; RESP 20; TEMP 36.2; BMI 18.0
--- NOTE | 2023-09-23 14:08 | PCM.WC.PN ---
History of Present Illness Date of Service: 09/23/23 Chief Complaint: Full-thickness wound to the left leg secondary to cat injury. History of Wound: Mrs. Duarte is an 78-year-old female seen at wound care clinic today at [facility] secondary to injury from her cat. Patient states that her cat was running at full speed and ran into her leg causing a wound. Patient has been treating it at home. She was referred by her primary doctor to evaluation and treatment. She denies any constitutional symptoms. No other pedal complaints at this time. Subjective Subjective Mrs. Duarte is an 78-year-old female presenting to the clinic today for follow-up of full-thickness ulceration to left leg. Patient has been following her dressing changes and states that she can notice great healing to her ulceration after traumatic injury. She denies any strikethrough to her dressings. She denies trauma. Denies constitutional symptoms. No other pedal complaints at this time. Objective Data Objective Data Vital Signs: Vital Signs Temp Pulse Resp BP 97.1 F L 95 20 H 151/110 H 09/23/23 13:57 09/23/23 13:57 09/23/23 13:57 09/23/23 13:57 Weight: 55.338 kg Body Mass Index (BMI) 18.0 Physical Exam Narrative Neurovascular status unchanged. Evidence of full-thickness ulceration to the left medial leg shows evidence of sanguinous crust and now healed. no sign of infection. No pain with calf compression. Debridement Note Debridement Note Post-Debridement Measurements and Additional Note: Post-Debridement Measurements/Treatment - Nurse 1 - General Ulcer Assessment Start: 09/23/23 13:57 Freq: Status: Active Protocol: ATA.ROSHNI Activity Type Activity Date Activity User E-sign Co-sign Detail Recorded Client Recorded Date Recorded By Document 09/23/23 13:57 DL Desktop 09/23/23 14:00 DL 09/23/23 13:57 - Today's Visit Information Type of service Follow-up Visit (Physician/TELESALES CONSULTANT ) Arrival Mode Ambulatory Transfer Assistance None Patient Identification Verified (Name & Yes ) Patient Requires Transmission-Based No Precautions Height and Weight Body Mass Index (BMI) 18.0 BMI Classification Underweight Vital Signs Temperature (97.8 F-99.1 F) 97.1 F L Temperature Source Temporal Pulse Rate (60-100) 95 Pulse Location Monitor Respiratory Rate (12-18) 20 H Respiratory rate source Observation Blood Pressure (90/60-120/80) 151/110 H Blood Pressure Mean (mm Hg) 123 Source Monitor History Since Last Visit- (Skip if this is Patient's initial visit) Have you changed medications since your No last visit? Any new allergies or adverse reactions No Had a fall/change in ADL's that may No increase risk of falls Signs or symptoms of abuse and/or No neglect since last visit Have you been in the hospital since your No last visit? Has dressing in place as prescribed Yes Has compression in place as prescribed Yes Has offloadiing in place as prescribed N/A Experienced any changes in pain level or No management Pain Scale: 0-10 Numeric Is Patient Pain Free? Yes WC - Nurse 1 - General Ulcer Measurement Start: 09/23/23 13:57 Freq: Status: Active Protocol: Activity Type Activity Date Activity User E-sign Co-sign Detail Recorded Client Recorded Date Recorded By Document 09/23/23 13:57 DL Desktop 09/23/23 14:00 DL 09/23/23 13:57 Wound Center Nurse 1 #1- LLE MEDIAL (TRAUMA) -Current Size (cm) - Length 0.1 -Current Size (cm) - Width 0.1 -Current Size (cm) - Depth 0.1 -Total Square Cm 0.01 -Exudate Amt None Present -Exudate Type Serosanguineous -Wound Margin Thickened -Granulation Amt None Present (0 %) -Necrosis Amt Small (1-33%) -Necrotic Tissue Type Adherent Slough -Color (Jaimie-wound Skin Appearance) Mottled -Temperature (Jaimie-wound Skin No Abnormality Appearance) (Pt Warm) -Tenderness on Palpation (Jaimie-wound No Skin Appearance) -Ulcer Cleansing Soap and Water -Foul Odor after Cleansing No -Anesthetic Used 5% Lidocaine Gel Left Calf (cm) 33 Left Ankle (cm) 18.8 Assessment/Plan Assessment/Plan (1) Laceration of left lower leg without foreign body: CODE(S): S81.812A - Laceration without foreign body, left lower leg, initial encounter QUALIFIERS: Encounter type: subsequent encounter Qualified Code(s): S81.812D - Laceration without foreign body, left lower leg, subsequent encounter PLAN: Patient was examined evaluated. All findings were discussed with the patient. All questions were answered to the patient's satisfaction. The patient's left full-thickness laceration without foreign body is now healed. There is evidence of sanguinous crust. Sanguinous crust was removed and show evidence of healing ulceration underneath. Patient was educated to pad and protect over the next 1 to 3 weeks with a Band-Aid or bordered foam and continue to wear compression stockings to the bilateral lower extremity. Mrs. Duarte is grateful for her care and left the wound care center pleased with her visit. Follow-up as needed. (2) Pain in left leg: CODE(S): M79.605 - Pain in left leg
== END 2023-09-23 15:59 | disposition home or self-care (01) ==
LOC: WC 13:47
PROVIDERS: PCP Registered Nurse; Referring Provider Registered Nurse; Visit Provider Podiatrist Foot & Ankle Surgery
DX: S81.812D Laceration without foreign body, left lower leg, subsequent encounter (principal); M79.605 Pain in left leg; X58.XXXD Exposure to other specified factors, subsequent encounter
CPT/HCPCS: 99213; G0463

== ENCOUNTER 2024-10-05 12:58 | Observation (INO) | payer MEDICARE, SELFPAY ==
[2024-10-05] VITALS (7 sets, daily range): BP systolic 138–165; BP diastolic 81–131; PULSE 74–90; RESP 16–20; TEMP 36.1–36.8; O2SAT 96–99; BMI 18.2
[2024-10-05] MEDS: Ondansetron 4 MG/2 ML Vial IV (13:31)
[2024-10-05] MEDS: HYDROmorphone 0.5 MG/0.5 ML SYRINGE IV ×2 (13:31→14:41)
[2024-10-05 13:47] LABS: Absolute Lymphocyte Count 1.81 X10^3/uL (0.83-4.51); Absolute Neutrophil Count 5.5 X10^3/uL (2.0-7.7); Basophil# 0.06 X10^3/uL; Basophil% 0.7 % (0-1); Eosinophil# 0.09 X10^3/uL; Eosinophils% 1.1 % (0-5); Hemoglobin 14.1 g/dL (12.0-15.0); Lymphocyte # 1.81 X10^3/ul (0.83-4.51); Mean Corp Hgb Conc 33.6 g/dL (32-36); Mean Corpuscular Hgb 33.4 pg (27.0-32.0); Mean Corpuscular Volume 99.5 fL (81-99); Mean Platelet Vol. 9.5 fl (6.2-12.0); Monocyte# 0.68 X10^3/uL; Monocyte% 8.3 % (0-10); NRBC Flagged by Analyzer 0 % (0-5); Neutrophil # 5.54 X10^3/uL (2.7-7.7); Neutrophil % 67.5 % (47-70); Platelet Count 305 K/mm3 (150-450); RBC Distribution Width CV 13.1 % (11.6-14.6); Red Blood Count 4.22 M/mm3 (4.2-5.4); White Blood Count 8.2 K/mm3 (4.4-11.0)
[2024-10-05 14:07] LABS: Mucous, Urine 0 SEEN /hpf (<or=2+); Red Blood Cells-Urine 0 SEEN /hpf (0-5)
[2024-10-05 14:08] LABS: Anion Gap 6 (5-15); BUN 25 mg/dL (7-18); BUN/Creat Ratio 19.8 RATIO (10-20); Calcium,Total 10.4 mg/dL (8.5-10.1); Chloride 104 mmol/L (98-107); Creatinine, Serum 1.26 mg/dL (0.55-1.02); EST Glomerular Filtration Rate 43 mL/min (>60); Est Glom Filt Rate - Afr Amer 52 mL/min (>60); Glucose 114 mg/dL (74-106); Potassium 3.5 mmol/L (3.5-5.1); Sodium Level 138 mmol/L (136-145)
[2024-10-05 14:12] LABS: Color, Urine Yellow (Yellow); Glucose, Dipstick Normal (Normal); Ketone-Dipstick Negative (Negative); Leukocyte Esterase-Dipstick 500 /ul (Negative); Nitrite-Dipstick Negative (Negative); Occult Blood-Urine 10 /ul (Negative); Protein-Dipstick 15 mg/dl (Negative); Specific Gravity, Urine 1.015 (1.002-1.030); Urine Bilirubin Dipstick Negative (Negative); Urine Clarity Clear (Clear); Urine Urobilinogen Normal (Normal)
[2024-10-05 14:19] LABS: Squamous Epithelial Cells - UA 0-5 SEEN /hpf (5-10)
[2024-10-05 14:20] LABS: Bacteria RARE /hpf (None Seen); White Blood Cells 0-5 SEEN /hpf (0-5)
[2024-10-05] MEDS: Acetaminophen 500 MG Tablet 1000 MG PO (21:18)
[2024-10-05] MEDS: Senna Tablet 2 TABLET PO (21:18)
[2024-10-05] MEDS: Polyethylene Glycol 3350 17 GM PACKET PO (21:19)
[2024-10-05] MEDS: oxyCODONE 5 MG Tablet PO (21:19)
[2024-10-05] MEDS: Atorvastatin Calcium 40 MG Tablet PO (22:40)
[2024-10-05] MEDS: Metoprolol Tartrate 50 MG Tablet PO (22:40)
[2024-10-06 05:30] VITALS: BP 153/75; PULSE 80; RESP 16; TEMP 36.3; O2SAT 97
[2024-10-06 05:31] VITALS: BMI 18.3
[2024-10-06] MEDS: Acetaminophen 500 MG Tablet 1000 MG PO ×3 (05:36→21:45)
[2024-10-06] MEDS: oxyCODONE 5 MG Tablet PO ×2 (05:36→14:08)
[2024-10-06 07:06] LABS: Hematocrit 38.5 % (37-47); Mean Corp Hgb Conc 33.8 g/dL (32-36); Mean Corpuscular Hgb 33.6 pg (27.0-32.0); Mean Corpuscular Volume 99.5 fL (81-99); Mean Platelet Vol. 9.3 fl (6.2-12.0); Platelet Count 260 K/mm3 (150-450); RBC Distribution Width CV 13.1 % (11.6-14.6); RBC Distribution Width SD 47.8 fl (35.1-43.9); Red Blood Count 3.87 M/mm3 (4.2-5.4)
[2024-10-06 07:41] LABS: Anion Gap 5 (5-15); BUN 24 mg/dL (7-18); BUN/Creat Ratio 22.2 RATIO (10-20); Calcium,Total 9.9 mg/dL (8.5-10.1); Chloride 104 mmol/L (98-107); Creatinine, Serum 1.08 mg/dL (0.55-1.02); EST Glomerular Filtration Rate 52 mL/min (>60); Est Glom Filt Rate - Afr Amer 63 mL/min (>60); Estimated Creatinine Clearance 35.47 ml/min; Glucose 91 mg/dL (74-106); Potassium 3.9 mmol/L (3.5-5.1); Sodium Level 139 mmol/L (136-145)
[2024-10-06 08:30] VITALS: BP 130/79; PULSE 86; RESP 16; TEMP 36.6; O2SAT 100
[2024-10-06] MEDS: Enoxaparin 40 MG/0.4 ML Syringe SC (08:43)
[2024-10-06 08:44] VITALS: PULSE 86
[2024-10-06] MEDS: Polyethylene Glycol 3350 17 GM PACKET PO (08:44)
[2024-10-06] MEDS: Aspirin E.C. 81 MG Tablet PO (08:44)
[2024-10-06] MEDS: Metoprolol Tartrate 50 MG Tablet PO ×2 (08:44→21:44)
[2024-10-06] MEDS: FLU VACCINE **HIGH DOSE** TV 24-25 180 MCG/0.5 ML SYRINGE IM (08:45)
[2024-10-06] MEDS: Senna Tablet 2 TABLET PO ×2 (08:45→21:44)
[2024-10-06] MEDS: Bisacodyl 10 MG Suppository RC (08:45)
[2024-10-06 14:06] VITALS: BP 106/66; PULSE 90; RESP 16; TEMP 36.3; O2SAT 96
[2024-10-06 21:33] VITALS: BP 111/72; PULSE 77; RESP 16; TEMP 36.9; O2SAT 94
[2024-10-06 21:44] VITALS: PULSE 77
[2024-10-06] MEDS: Atorvastatin Calcium 40 MG Tablet PO (21:44)
[2024-10-07] MEDS: oxyCODONE 5 MG Tablet PO ×2 (02:35→13:18)
[2024-10-07 02:41] VITALS: BP 110/67; PULSE 82; RESP 16; TEMP 37; O2SAT 94
[2024-10-07] MEDS: Acetaminophen 500 MG Tablet 1000 MG PO ×2 (06:10→13:18)
[2024-10-07 06:26] LABS: Anion Gap 6 (5-15); BUN 23 mg/dL (7-18); BUN/Creat Ratio 28.3 RATIO (10-20); Calcium,Total 9.5 mg/dL (8.5-10.1); Chloride 104 mmol/L (98-107); Creatinine, Serum 0.81 mg/dL (0.55-1.02); EST Glomerular Filtration Rate 72 mL/min (>60); Est Glom Filt Rate - Afr Amer 87 mL/min (>60); Glucose 99 mg/dL (74-106); Magnesium 1.9 mg/dL (1.6-2.6); Phosphorus 2.9 mg/dL (2.5-4.9); Potassium 3.8 mmol/L (3.5-5.1); Sodium Level 137 mmol/L (136-145)
[2024-10-07 07:53] VITALS: BP 137/68; PULSE 86; RESP 18; TEMP 36.6; O2SAT 98; BMI 18.4
[2024-10-07 07:54] VITALS: O2SAT 94
[2024-10-07 07:59] VITALS: PULSE 86
[2024-10-07] MEDS: Metoprolol Tartrate 50 MG Tablet PO (07:59)
[2024-10-07] MEDS: Polyethylene Glycol 3350 17 GM PACKET PO (07:59)
[2024-10-07] MEDS: Senna Tablet 2 TABLET PO (07:59)
[2024-10-07 09:30] LABS: Absolute Lymphocyte Count 1.05 X10^3/uL (0.83-4.51); Absolute Neutrophil Count 7.7 X10^3/uL (2.0-7.7); Basophil# 0.04 X10^3/uL; Basophil% 0.4 % (0-1); Eosinophil# 0.13 X10^3/uL; Eosinophils% 1.4 % (0-5); Hematocrit 39.4 % (37-47); Hemoglobin 13.3 g/dL (12.0-15.0); Lymphocyte # 1.05 X10^3/ul (0.83-4.51); Lymphocyte % 10.9 % (19-41); Mean Corp Hgb Conc 33.8 g/dL (32-36); Mean Corpuscular Hgb 33.4 pg (27.0-32.0); Mean Platelet Vol. 9.9 fl (6.2-12.0); Monocyte# 0.68 X10^3/uL; Monocyte% 7.1 % (0-10); NRBC Flagged by Analyzer 0 % (0-5); Neutrophil # 7.67 X10^3/uL (2.7-7.7); Neutrophil % 79.9 % (47-70); Platelet Count 270 K/mm3 (150-450); RBC Distribution Width CV 12.8 % (11.6-14.6); RBC Distribution Width SD 46.4 fl (35.1-43.9); Red Blood Count 3.98 M/mm3 (4.2-5.4); White Blood Count 9.6 K/mm3 (4.4-11.0)
[2024-10-07] MEDS: Enoxaparin 40 MG/0.4 ML Syringe SC (09:57)
[2024-10-07 14:01] VITALS: BP 138/78; PULSE 74; RESP 18; TEMP 36.6; O2SAT 95
== END 2024-10-07 16:55 | disposition home or self-care (01) ==
LOC: ED 15:00 → MS3 18:17
PROVIDERS: Admitting Provider Hospitalist; Emergency Provider Emergency Medicine; PCP Registered Nurse; Referring Provider Emergency Medicine; Visit Provider Internal Medicine
DX: M80.08XA Age-related osteoporosis with current pathological fracture, vertebra(e), initial encounter for fracture (principal); G89.29 Other chronic pain; R53.81 Other malaise; K57.30 Diverticulosis of large intestine without perforation or abscess without bleeding; N20.0 Calculus of kidney; I10 Essential (primary) hypertension; Z87.891 Personal history of nicotine dependence; Z86.711 Personal history of pulmonary embolism; I25.2 Old myocardial infarction; Z79.899 Other long term (current) drug therapy; Z79.82 Long term (current) use of aspirin; R79.89 Other specified abnormal findings of blood chemistry; K59.00 Constipation, unspecified; I25.10 Atherosclerotic heart disease of native coronary artery without angina pectoris; I73.9 Peripheral vascular disease, unspecified; E78.5 Hyperlipidemia, unspecified; M54.50 Low back pain, unspecified; N28.9 Disorder of kidney and ureter, unspecified; Z23 Encounter for immunization
CPT/HCPCS: 36415; 72148; 74176; 80048; 81001; 83735; 84100; 85025; 85027; 90662; 93005; 94668; 96372; 96374; 96375; 96376; 97116; 97162; 97166; 97530; 99221; 99285; P9612; A4216; G0378; J2405

== ENCOUNTER → 2024-10-21 | Outpatient (CLI) | payer MEDICARE, SELFPAY ==
--- NOTE | 2024-10-19 | IMM_PTH ---
PATIENT: MILLER ACUNA LOC: [facility] U#:[id number] AGE/SX: 79/F ROOM: RE10/21/[address]: Dr. Rodolfo Chen MD : 1945 BED: DIS: 10/21/2024 SPEC #: [id number] RECD: 10/24/24 10:53 STATUS: SOUOc REQ #: [id number] VIKASH: 10/19/24 00:[address]: Rodolfo Chen DEPT: IMMUNOHISTOCHEMISTRY RECD BY: Damian Walsh ENTERED: 10/24/24 10:54 SP TYPE: IMMUNO OTHR DR: Autumn Richards, FREDA Tissues: Vertebra, NOS Procedures: CD138 (add) CD20 (add) CD3 (add) CD45 (add) CD5 (add) KAPPA (add) LAMBDA (add) Pankeratin (initial) PHYSICIAN & INSTITUTION [place] [id number] SPECIMEN INFORMATION: Tissue Source: Bone biopsy from L1 vertebrae Clinical Info: Fracture Specimen Number: [id number] CPT code: 49437,[id number] METHODOLOGY: Deparaffinized sections of prefer/formalin-fixed tissue or PAP/DQ stained slides are incubated with monoclonal/polyclonal antibodies/oligonucleotide probes. Localization is made via biotin free immunoperoxidase method. Appropriate controls are performed and reacted as expected. Results on target cell population are indicated in the following table: RESULTS: ANTIBODY / CLONE RESULT AE1-3 (AE1/AE3/PCK26) negative CD45 (RP2/18) positive CD20 (L26) positive, rare CD3 (PS1) positive CD5 (SP10) positive CD138 (B-A38) positive, rare [place] (polyclonal) negative Lambda (polyclonal) negative These tests were developed and their performance characteristics determined by [facility]. They may not have been cleared or approved by the U.S. Food and Drug Administration. The FDA has determined that such clearance or approval is not necessary. The above immunohistochemical/dualISH markers are ordered and reviewed by the Pathologist. INTERPRETATION: L1 vertebrae, bone biopsy: No evidence of malignancy. 10/25/2024
--- NOTE | 2024-10-19 18:07 | BONBX_PTH ---
PATIENT: MILLER ACUNA LOC: [facility] #:[id number] AGE/SX: 79/F ROOM: RE10/21/[address]: Dr. Rodolfo Chen MD : 1945 BED: DIS: 10/21/2024 SPEC #: [id number] RECD: 10/21/24 08:34 STATUS: ERIC REQ #: [id number] VIKASH: 10/19/24 18:[address]: Rodolfo Chen DEPT: SURGICAL PATHOLOGY RECD BY: Damian Walsh ENTERED: 10/21/24 08:35 SP TYPE: Bone OTHR DR: Autumn Richards, FREDA Tissues: Vertebra, NOS Procedures: Decalcification bone/plaque Surgery Specimen Level V HEADER OPERATION: Kyphoplasty L1 PRE-OP DIAGNOSIS: Fracture TISSUE SUBMITTED: Bone biopsy from L1 vertebrae biopsy MICROSCOPIC DIAGNOSIS L1 vertebral body, bone biopsy: A rare fragment of cortical bone with adjacent trilineage hematopoietic cell population. No evidence of malignancy. See comment. AM. 10/24/2024 COMMENT Immunohistochemistry ([id number]) supports the above diagnosis. MICROSCOPIC DESCRIPTION Slides are reviewed. GROSS DESCRIPTION Received is one container labeled with the patient's name and not further designated. The specimen consists of clotted reddish-villanueva material aggregating to 0.5 x 0.3 x <0.1cm.The specimen is submitted in its entirety in one cassette after decalcification. AM.mr 10/21/2024 TC:5 CPT:38473,03662
== END | disposition home or self-care (01) ==
PROVIDERS: PCP Registered Nurse; Referring Provider Anesthesiology; Visit Provider Anesthesiology
DX: S32.019A Unspecified fracture of first lumbar vertebra, initial encounter for closed fracture (principal)
CPT/HCPCS: 88307; 88311; 88341; 88342

== ENCOUNTER → 2025-10-13 | Outpatient (CLI) | payer MEDICARE, SELFPAY ==
[2025-10-13 13:00] LABS: Creatinine, Urine (random) 104.00 mg/dL (28.00-217.00); Protein, Urine (Random) 37.4 mg/dL (0.0-12.0); Protein:Creat Ratio 360 mg/g CRE (0-200)
[2025-10-13 13:31] LABS: Albumin, Serum 4.3 g/dL (3.4-4.8); Anion Gap 9 (5-15); BUN 29 mg/dL (4-19); BUN/Creat Ratio 25.1 RATIO (10-20); Calcium,Total 10.4 mg/dL (7.6-11.0); Carbon Dioxide 28.4 mmol/L (21.0-32.0); Chloride 103 mmol/L (98-108); Glucose 84 mg/dL (70-99); Potassium 4.3 mmol/L (3.3-5.1)
[2025-10-17 15:08] LABS: Cytoplasmic Ab (C-ANCA) <1:20 titer (Neg:<1:20); PROEL- A/G Ratio 1.2 (0.7-1.7); PROEL- Albumin 4.0 g/dL (2.9-4.4); PROEL- Alpha-1 Globulin 0.2 g/dL (0.0-0.4); PROEL- Alpha-2 Globulin 0.8 g/dL (0.4-1.0); PROEL- Beta Globulin 1.1 g/dL (0.7-1.3); PROEL- Gamma Globulin 1.2 g/dL (0.4-1.8); PROEL- Globulin, Total 3.3 g/dL (2.2-3.9); PROEL- TOTAL PROTEIN 7.3 g/dL (6.0-8.5); PROEL-M-Spike Not Observed g/dL (Not Observed); Perinuclear Ab (P-ANCA) <1:20 titer (Neg:<1:20)
== END | disposition home or self-care (01) ==
LOC: LAB 11:34
PROVIDERS: PCP Registered Nurse; Referring Provider Internal Medicine Nephrology; Visit Provider Internal Medicine Nephrology
DX: N18.32 Chronic kidney disease, stage 3b (principal)
CPT/HCPCS: 36415; 80069; 82570; 83520; 83883; 84156; 84165; 86037; 86160